=== PATIENT | female | born 1995 | race Caucasian/White ===

== ENCOUNTER → 2018-10-04 11:05 | Outpatient (CLI) | payer MEDICAID, SELFPAY ==
[2016-03-30 23:49] VITALS: BMI 30.2
[2018-10-04 13:31] LABS: Absolute Lymphocyte Count 2.16 X10^3/ul (0.83-4.51); Basophil# 0.01 X10^3/uL; Basophil% 0.1 % (0-1); Eosinophil# 0.07 X10^3/uL; Eosinophils% 0.9 % (0-5); Hematocrit 39.5 % (37-47); Hemoglobin 13.5 g/dl (12.0-15.0); Lymphocyte # 2.16 X10^3/ul (4.0); Lymphocyte % 27.7 % (19-41); Mean Corp Hgb Conc 34.2 g/gl (32-36); Mean Corpuscular Hgb 30.5 pg (27.0-32.0); Mean Corpuscular Volume 89.2 fL (81-99); Mean Platelet Vol. 10.4 fl (6.2-12.0); Monocyte# 0.58 X10^3/uL; Monocyte% 7.4 % (0-10); Neutrophil # 4.96 X10^3/uL (2.7-7.7); Neutrophil % 63.8 % (47-70); Platelet Count 263 K/mm3 (150-450); RBC Distribution Width CV 12.7 % (11.6-14.6); RBC Distribution Width SD 41.2 fl (35.1-43.9); Red Blood Count 4.43 M/mm3 (4.2-5.4); White Blood Count 7.8 K/mm3 (4.4-11.0)
[2018-10-04 13:34] LABS: POSITIVE COUNT NO; POSITIVE DIFFERENTIAL NO; POSITIVE MORPHOLOGY NO
[2018-10-04 13:47] LABS: AST(SGOT) 16 U/L (15-37); Alanine Aminotransfer ALT/SGPT 16 U/L (13-56); Albumin, Serum 3.8 g/dL (3.2-5.0); Alkaline Phosphatase 68 U/L (45-117); Anion Gap 8 (5-15); BUN 9 mg/dL (7-18); BUN/Creat Ratio 14.4 RATIO (10-20); Calcium,Total 8.6 mg/dL (8.5-10.1); Chloride 107 mmol/L (98-107); Creatinine, Serum 0.63 mg/dL (0.55-1.02); EST Glomerular Filtration Rate 127 mL/min (>60); Est Glom Filt Rate - Afr Amer 154 mL/min (>60); Globulin 3.7 g/dL (2.2-4.2); Glucose 85 mg/dL (74-106); Potassium 3.3 mmol/L (3.5-5.1); Protein, Total 7.5 g/dL (6.4-8.2); Sodium Level 135 mmol/L (136-145)
[2018-10-04 14:28] LABS: HIV - WCH Non-Reactive (Nonreactive); Rubella IgG 10.3 IU/mL
[2018-10-05 09:08] LABS: HEPATITIS B SURFACE AG Negative (Negative)
== END ==
PROVIDERS: Family Provider Family Medicine; PCP Family Medicine; Visit Provider Family Medicine
DX: Z34.90 Encounter for supervision of normal pregnancy, unspecified, unspecified trimester (principal)
CPT/HCPCS: 36415; 80053; 85025; 86703; 86762; 86900; 87340

== ENCOUNTER → 2018-10-12 18:14 | Outpatient (CLI) | payer MEDICAID, SELFPAY ==
[2016-03-30 23:49] VITALS: BMI 30.2
[2018-10-12 23:00] LABS: Chlamydia Trachomatis by PCR Negative (Negative); Neisserai gonorrhoeae by PCR Negative (Negative); Probe Check PASS; Sample Adequacy Control PASS; Specimen Processing Control PASS
[2018-10-15 13:15] LABS: HPV Reflexed? NOT INDICATED
--- OUTSIDE RECORDS SUMMARY | 2019-01-14 06:05 | XMS RPT_ITS ---
:1995 Author Organization [place] Care Team Providers Name Role Phone NIKKI PILLAI MD Attending Unavailable KODY MARKS, DR. JENNIFER Douglas Primary Care Unavailable Renetta Gamble MD Attending Unavailable KODY MARKS, DR. JENNIFER Douglas Primary Care Unavailable TREASURE PAREDES DO Attending Unavailable PHYSICIAN, NONE Primary Care Unavailable GRANT LEIGH MD Attending Unavailable PHYSICIAN, NONE Primary Care Unavailable Ansley Fragoso Attending Unavailable John Lund Primary Care Unavailable Ansley Fragoso Referring Unavailable John Lund Attending Unavailable John Lund Primary Care Unavailable Ansley Fragoso Consulting Unavailable Ansley Fragoso Attending Unavailable PROBLEMS PROBLEMS DATE TYPE CONDITION / CODE ATTENDING STATUS SOURCE 11/01/2018 Unknown Z34.81 - Encounter Anslye Fragoso for supervision of Community other normal Hospital , first Repository trimester / Z34.81(ICD-10) 10/13/2018 Unknown R30.0 - Dysuria / Ansley Fragoso Active [place] R30.0(ICD-10) [facility] Repository 10/13/2018 Unknown Z12.4 - Encounter Ansley Fragoso Active [facility] for screening for Community malignant neoplasm Hospital of cervix / Repository Z12.4(ICD-10) 10/13/2018 Unknown Z11.3 - Encounter Ansley Fragoso Active [place] for screening for Community infections with a Hospital predominantly Repository sexual mode of transmission / Z11.3(ICD-10) 10/04/2018 Unknown Z34.90 - Encounter John Lund Active [facility] for supervision of [facility] normal , Hospital unspecified, Repository unspecified trimester / Z34.90(ICD-10) PROCEDURES PROCEDURES No Procedure Records FoundRESULTS RESULTS UA Collected: 11/05/2018 Status: F Source: [facility] 10:52 PM [facility] REPOSITORY TYPE CODE TESTS RESULT OUT OF RANGE REFERENCE UNITS LAB SPCUA(ROXANA NC) UA Specimen Type Clean Catch LAB CLRUA(ROXANA NC) UA Color Yellow LAB APPUA(ROXANA Clear NC) UA Appear Unknown Slightly Cloudy LAB SGUA(LOIN C) UA Spec Grav 1.015 LAB GLUA(LOIN Negative mg/dL C) UA Glucose Negative LAB BILUA(ROXANA Negative NC) UA Bili Negative LAB KETUA(ROXANA Negative mg/dL NC) UA Ketones Negative LAB BLDUA(ROXANA Negative NC) UA Blood Unknown Trace-Intact LAB PHUA(LOIN C) UA pH 7.0 LAB PROUA(ROXANA Negative mg/dL NC) UA Protein Negative LAB UROUA(ROXANA E.U./dL NC) UA Urobilinogen 0.2 LAB NITUA(RXOANA Negative NC) UA Nitrite Unknown Positive LAB LEUUA(ROXANA Negative NC) UA Leuk Est Unknown Trace Performed By: #### UA, UAMICAO #### [place] [address] .URINALYSIS MICROSCOPIC Collected: 11/05/2018 Status: F Source: [facility]) 10:52 PM [facility] REPOSITORY TYPE CODE TESTS RESULT OUT OF RANGE REFERENCE UNITS LAB WBCUA(LOIN None Seen /hpf C) Unknown UA WBC 0-5 LAB RBCUA(LOIN None Seen /hpf C) Unknown UA RBC 0-5 LAB EPIUA(LOIN None Seen /hpf C) Unknown UA Squam Epithelial 5-10 LAB AMOUA(LOIN /hpf C) UA Amorphus 1+ LAB BACUA(LOIN /hpf C) Unknown UA Bacteria 2+ Performed By: #### UA, UAMICAO #### [place] [id number] Observed: 11/05/2018 Status: F Source: [facility] 10:52 PM [facility] REPOSITORY . MICRO - Microbiology PROCEDURE: Urine Culture [*1] SOURCE: Urine, Clean Catch BODY SITE: COLLECTED DATE/TIME: 11/05/2018 22:52 EST RECEIVED DATE/TIME: 11/06/2018 21:38 EST START DATE/TIME: 11/06/2018 21:38 EST FREE TEXT SOURCE: FINAL REPORTS Final Report [] Verified Date/Time/Personnel: 11/08/2018 09:21 EST >100,000 organisms per mL Escherichia coli PRELIMINARY REPORTS Preliminary Report [] Verified Date/Time/Personnel: 11/07/2018 10:19 EST >100,000 organisms per mL Gram Negative Rods Final identification and DIVINE to follow. SUSCEPTIBILITY RESULTS Escherichia coli Antibiotic DIVINE Dilutn DIVINE Interp Ampicillin <=8 Susceptible Cefazolin <=8 Susceptible Ciprofloxacin <=1 Susceptible Gentamicin <=4 Susceptible Levofloxacin <=2 Susceptible Meropenem <=1 Susceptible Nitrofurantoin <=32 Susceptible Piperacillin/ <=16 Susceptible Tazobactam Trimethoprim/ <=2/38 Susceptible Sulfa Performing Locations *1: This test was performed at: [address], [address] [place] [address] Performed By: #### CUR #### [place] [address] URINE DRUG SCREEN Collected: 11/01/2018 Status: F Source: [facility] (VISTA) 2:58 PM [facility] REPOSITORY Order Comment: Comments: UNK IMMUNITY STATUS List of Drugs Taken or Suspected? UNK TYPE CODE TESTS RESULT OUT OF RANGE REFERENCE UNITS LAB L505.0075 TO BE Normal CONFIRMED Result Comment: CONFIRMATORY TESTING FOR ALL POSITIVE URINE DRUG SCREEN RESULTS WILL ONLY BE SENT OUT UPON PHYSICIAN ORDER. VISTA Urine Drug Screen methods provide only preliminary analytical test results. A more specific alternate chemical method must be used in order to obtain a confirmed analytical result. Gas chromatography/mass spectrometery (GC/MS) is the preferred confirmatory method. Clinical consideration and professional judgement should be applied to any drug of abuse test result, particularly when preliminary positive results are used. URINE TCA TESTING MUST BE ORDERED SEPARATELY. USE TEST MNEMONIC: [facility] LAB L505.5005 VISTA UDS PH 6 Normal LAB L505.5015 <1000 ng/mL AMPHETAMINES Normal NEGATIVE LAB L505.5025 < 200 ng/mL BARBITIURATES Normal NEGATIVE LAB L505.5035 < 200 ng/mL BENZODIAZIPINE Normal NEGATIVE LAB L505.5045 < 300 ng/mL COCAINE Normal NEGATIVE LAB L505.5055 < 500 ng/mL ECSTACY Normal NEGATIVE LAB L505.5065 < 300 ng/mL METHADONE Normal NEGATIVE LAB L505.5075 < 300 ng/mL OPIATES Normal NEGATIVE LAB L505.5085 < 25 ng/mL PCP Normal NEGATIVE LAB L505.5095 < 50 ng/mL THC Normal NEGATIVE Performed By: #### L505.5000, L505.6240 #### [facility] [address] [place], [address] NICOTINE URINE DRUG Collected: 11/01/2018 Status: F Source: [facility] SCREEN 2:58 PM [facility] REPOSITORY Order Comment: Comments: UNK IMMUNITY STATUS List of Drugs Taken or Suspected? UNK TYPE CODE TESTS RESULT OUT OF RANGE REFERENCE UNITS LAB L505.6250 TO BE Normal CONFIRMED Result Comment: CONFIRMATORY TESTING FOR ALL POSITIVE URINE DRUG SCREEN RESULTS WILL ONLY BE SENT OUT UPON PHYSICIAN ORDER. The results of Urine Drug Screen methods provide only preliminary analytical test results. A more specific alternate chemical method must be used in order to obtain a confirmed analytical result. Gas chromatography/mass spectrometery (GC/MS) is the preferred confirmatory method. Clinical consideration and professional judgement should be applied to any drug of abuse test result, particularly when preliminary positive results are used. LAB L505.6270 <200 ng/mL High COT DRG Positive SCREEN Result Comment: Cotinine is the first-stage metabolite of Nicotine. Performed By: #### L505.5000, L505.6240 #### [facility] [address] [place], [address] URINALYSIS, ROUTINE Collected: 11/01/2018 Status: F Source: [facility] (DIPSTICK) 2:58 PM [facility] REPOSITORY Order Comment: Comments: UNK IMMUNITY STATUS How was Urine Obtained? Urine, Random TYPE CODE TESTS RESULT OUT OF RANGE REFERENCE UNITS LAB L400.3000 Yellow COLOR Normal Yellow LAB L400.3050 Clear Normal CLARITY Clear LAB L400.3200 Normal mg/dl Normal GLUCOSE, UR Normal LAB L400.3300 Negative mg/dL Normal BILIRUBIN URINE Negative LAB L400.3400 Negative mg/dl Normal KETONE UR Negative LAB L400.3465 1.002-1.030 Normal SP.GR. DIPSTX 1.010 LAB L400.3550 5.0 - 8.0 pH UR Normal 7.0 LAB L400.3600 Negative mg/dl PROT Normal DIPSTX Negative LAB L400.3700 Normal mg/dl Normal UROBILI Normal LAB L400.3750 Negative Normal NITRITE UR Negative LAB L400.3780 Negative /ul Normal OCCULT BLOOD-UR Negative LAB L400.3800 Negative /ul High LEUK 25 ESTERASE Performed By: #### L400.2010 #### [facility] [address] [place], [address] THYROID STIM HORMONE Collected: 11/01/2018 Status: F Source: [facility] (TSH) 2:58 PM [facility] REPOSITORY TYPE CODE TESTS RESULT OUT OF RANGE REFERENCE UNITS LAB L501.9520 0.358-3.74 uIU/mL Normal TSH 0.67 Performed By: #### L501.9520 #### [facility] [address] [place], [address] CBC W/DIFF, AUTOMATED Collected: 11/01/2018 Status: F Source: [place] 2:58 PM [facility] REPOSITORY TYPE CODE TESTS RESULT OUT OF RANGE REFERENCE UNITS LAB L100.1000 4.4-11.0 K/mm3 Normal WBC 7.8 LAB L100.1200 4.2-5.4 M/mm3 Normal RBC 4.20 LAB L100.1300 12.0-15.0 g/dl Normal HGB 12.7 LAB L100.1400 37-47 % Normal HCT 38.1 LAB L100.1500 81-99 fL Normal MCV 90.7 LAB L100.1600 27.0-32.0 pg Normal MCH 30.2 LAB L100.1700 32-36 g/gl Normal MCHC 33.3 LAB L100.1810 11.6-14.6 % Normal RDW CV 13.4 LAB L100.1820 35.1-43.9 fl High RDW SD 44.2 LAB L100.1900 150-450 K/mm3 Normal PLT 271 LAB L100.2000 6.2-12.0 fl Normal MPV 10.3 LAB L100.2100 47-70 % Normal NEUT% 67.9 LAB L100.2200 19-41 % Normal LY% 25.3 LAB L100.2300 0-10 % Normal MONO% 6.0 LAB L100.2400 0-5 % Normal EO% 0.6 LAB L100.2500 0-1 % Normal BASO% 0.1 LAB L100.2550 0.0-0.9 % Normal IM GRAN % 0.100 Result Comment: IG% - Immature Granulocytes (promyelocytes, myelocytes and metamyelocytes) > 1% indicates that a LEFT SHIFT is Present. LAB L100.2620 2.0-7.7 X10 3/uL Normal Absolute Neut 5.3 LAB L100.2720 0.83-4.51 X10 3/ul Normal Absolute Lymph 1.98 Performed By: #### L100.0100 #### [facility] [address] [place], [address] RUBELLA IGG Collected: 11/01/2018 Status: F Source: [place] 2:58 PM [facility] REPOSITORY Order Comment: Comments: UNK IMMUNITY STATUS TYPE CODE TESTS RESULT OUT OF RANGE REFERENCE UNITS LAB L509.4000 IU/mL Normal Rubella IgG 10.1 Result Comment: Antibody results Interpretation of Immune Status < 5 IU/ml Presumed Non-immune 5 - < 10 IU/ml Equivocal > or = 10 IU/ml Presumed Immune Performed By: #### L509.4000, L3890.6005 #### [facility] [address] [place], [address] HIV - [facility] Collected: 11/01/2018 Status: F Source: [place] 2:58 PM [facility] REPOSITORY Order Comment: Comments: UNK IMMUNITY STATUS TYPE CODE TESTS RESULT OUT OF RANGE REFERENCE UNITS LAB L3890.6005 Nonreactive Normal HIV - [facility] Non-Reactive Performed By: #### L509.4000, L3890.6005 #### [facility] [address] [place], [address] T AND S-NO Collected: 11/01/2018 Status: F Source: [facility] CHARGE W/PNP 2:58 PM [facility] REPOSITORY Order Comment: Reason for Type AND Screen/Red Cells: Surgery? N TYPE CODE TESTS RESULT OUT OF RANGE REFERENCE UNITS LAB B10.0800 A Normal BLOOD NEGATIVE TYPE GEL LAB B100.4050 Normal Ab SCREEN NEGATIVE GEL Performed By: #### B100.7550 #### [facility] [address] [place], [address] HEPATITIS B SURFACE Collected: 11/01/2018 Status: F Source: [place] AG 2:58 PM [facility] REPOSITORY Order Comment: Comments: UNK IMMUNITY STATUS TYPE CODE TESTS RESULT OUT OF RANGE REFERENCE UNITS LAB L3100.0400 Negative Normal HB Negative SURF AG Result Comment: Performed at: - [facility] [id number] Global Process Owner: Suresh Russo PhD, Phone: [phone] Performed By: #### L3100.0390, L3100.0625, L3400.0000 #### [facility] (refer to report for specific site) refer to report for address and phone number HEPATITIS C ANTIBODIES Collected: 11/01/2018 Status: F Source: [place] 2:58 PM [facility] REPOSITORY Order Comment: Comments: UNK IMMUNITY STATUS TYPE CODE TESTS RESULT OUT OF RANGE REFERENCE UNITS LAB L3100.0650 0.0-0.9 s/co ratio Normal HEP C AB 0.3 Result Comment: Negative: < 0.8 Indeterminate: 0.8 - 0.9 Positive: > 0.9 The CDC recommends that a positive HCV antibody result be followed up with a HCV Nucleic Acid Amplification test ([id number]). Performed By: #### L3100.0390, L3100.0625, L3400.0000 #### [facility] (refer to report for specific site) refer to report for address and phone number V-ZOSTER IGG Collected: 11/01/2018 Status: F Source: [facility] (IMMUNITY) 2:58 PM [facility] REPOSITORY Order Comment: Comments: UNK IMMUNITY STATUS TYPE CODE TESTS RESULT OUT OF RANGE REFERENCE UNITS LAB L3400.0000 Immune >165 index Normal VZOST IgG [id number] Result Comment: Negative <135 Equivocal 135 - 165 Positive >165 A positive result generally indicates exposure to the pathogen or administration of specific immunoglobulins, but it is not indication of active infection or stage of disease. Performed By: #### L3100.0390, L3100.0625, L3400.0000 #### [facility] (refer to report for specific site) refer to report for address and phone number RPR Collected: 11/01/2018 Status: F Source: [place] 2:58 PM [facility] REPOSITORY TYPE CODE TESTS RESULT OUT OF REFERENCE UNITS RANGE LAB L700.5100 NONREACTIVE Normal RPR NONREACTIVE Performed By: #### L700.5100 #### [facility] [address] [place], [place], [id number] CT/NG WCH BY PCR Collected: 10/12/2018 Status: F Source: [place] 4:15 PM [facility] REPOSITORY TYPE CODE TESTS RESULT OUT OF RANGE REFERENCE UNITS LAB L8200.2100 Negative Normal Chlam Negative Trac PCR LAB L8200.2200 Negative Normal NG by Negative PCR Performed By: #### L8200.2000 #### [facility] [address] [place], [place], [address] Observed: 10/12/2018 Status: F Source: [place] CULTURE, URINE 4:15 PM [facility] REPOSITORY Urine Culture ORGANISM 1: Presumptive E. coli [place] Count >100,000 Presumptive E. coli: REACTION Amoxacillin/Clavulanic Acid $ <=2 S Ampicillin $ 8 S Ampicillin/Sulbactam $ 4 S Cefazolin $ <=4 S Cefepime $ <=1 S Ceftriaxone $ <=1 S Ciprofloxacin $ <=0.25 S ESBL - Ertapenim $$$ <=0.5 S Gentamicin $ <=1 S Imipenem *NF <=0.25 S Levofloxacin $ <=0.12 S Nitrofurantoin $ <=16 S Piperacillin/Tazobactam $$ <=4 S Tobramycin $ <=1 S Trimethoprim/Sulfametho $ <=20 S (NF) indicates non-formulary drug at [facility]. Approval by Infectious Disease Specialist required before non-formulary drugs may be ordered and/or dispensed. Performed By: #### M100.0650 #### [facility] [address] [place], [address] PAP I-G W/RFX HRHPV Collected: 10/12/2018 Status: F Source: [place] 4:15 PM [facility] REPOSITORY Order Comment: CYTOLOGY INFORMATION: - CLINICAL INFORMATION: - DATE LMP/MENOPAUSE: 08/28/18 LMP - COLLECTION VIAL: Thin Prep Vial - ASSEMBLER PRODUCTION LINE SOURCE: CERVICAL/ENDOCERVICAL - COLLECTION TECHNIQUE: BRUSH/SPATULA Specimen Comment: [id number] Specimen Comment: Source.............Cervix;Endocervix Specimen Comment: LMP / Prev Treat...[id number] Specimen Comment: No. of containers..01 ThinPrep Vial TYPE CODE TESTS RESULT OUT OF RANGE REFERENCE UNITS LAB L7400.0800 . Normal DIAGN Comment Result Comment: NEGATIVE FOR INTRAEPITHELIAL LESION AND MALIGNANCY. PREDOMINANCE OF COCCOBACILLI CONSISTENT WITH SHIFT IN VAGINAL LAURA IS PRESENT. LAB L7400.0900 . Normal ADEQ Comment Result Comment: Satisfactory for evaluation. Endocervical and/or squamous metaplastic cells (endocervical component) are present. LAB L7400.1400 . Normal PERFORM Comment Result Comment: Jacqui Sandoval, [employer] (ASCP) LAB L7400.2575 . Normal TEST METHOD Comment Result Comment: This liquid based ThinPrep(R) pap test was screened with the use of an image guided system. LAB L7400.2600 . Normal . COMM LAB L7400.2700 . Normal PAPSMR Comment Result Comment: The Pap smear is a screening test designed to aid in the detection of premalignant and malignant conditions of the uterine cervix. It is not a diagnostic procedure and should not be used as the sole means of detecting cervical cancer. Both false-positive and false-negative reports do occur. LAB L7400.2800 . Normal HPV RFLX Comment Result Comment: The HPV DNA reflex criteria were not met with this specimen result therefore, no HPV testing was performed. Performed at: - [facility] [id number] Global Process Owner: Corina Schwartz MD, Phone: [phone] Performed By: #### L7400.0350 #### [facility] (refer to report for specific site) refer to report for address and phone number CBC W/DIFF, AUTOMATED Collected: 10/04/2018 Status: F Source: [place] 11:11 AM [facility] REPOSITORY TYPE CODE TESTS RESULT OUT OF RANGE REFERENCE UNITS LAB L100.1000 4.4-11.0 K/mm3 Normal WBC 7.8 LAB L100.1200 4.2-5.4 M/mm3 Normal RBC 4.43 LAB L100.1300 12.0-15.0 g/dl Normal HGB 13.5 LAB L100.1400 37-47 % Normal HCT 39.5 LAB L100.1500 81-99 fL Normal MCV 89.2 LAB L100.1600 27.0-32.0 pg Normal MCH 30.5 LAB L100.1700 32-36 g/gl Normal MCHC 34.2 LAB L100.1810 11.6-14.6 % Normal RDW CV 12.7 LAB L100.1820 35.1-43.9 fl Normal RDW SD 41.2 LAB L100.1900 150-450 K/mm3 Normal PLT 263 LAB L100.2000 6.2-12.0 fl Normal MPV 10.4 LAB L100.2100 47-70 % Normal NEUT% 63.8 LAB L100.2200 19-41 % Normal LY% 27.7 LAB L100.2300 0-10 % Normal MONO% 7.4 LAB L100.2400 0-5 % Normal EO% 0.9 LAB L100.2500 0-1 % Normal BASO% 0.1 LAB L100.2550 0.0-0.9 % Normal IM GRAN % 0.100 Result Comment: IG% - Immature Granulocytes (promyelocytes, myelocytes and metamyelocytes) > 1% indicates that a LEFT SHIFT is Present. LAB L100.2620 2.0-7.7 X10 3/uL Normal Absolute Neut 5.0 LAB L100.2720 0.83-4.51 X10 3/ul Normal Absolute Lymph 2.16 Performed By: #### L100.0100 #### [facility] [address] [place], [address] COMPREHENSIVE METABOLIC Collected: 10/04/2018 Status: F Source: [facility] ONTIVEROS 11:11 AM [facility] REPOSITORY TYPE CODE TESTS RESULT OUT OF RANGE REFERENCE UNITS LAB L501.0100 74-106 mg/dL Normal GLU 85 Result Comment: Please note revised GLUCOSE reference range effective 2017. LAB L501.1000 7-18 mg/dL Normal BUN 9 LAB L501.1100 0.55-1.02 mg/dL Normal CREAT,SERUM 0.63 Result Comment: The validity of the calculated GFR AND GFRAA in patients over 70 years has not been determined. Clinical correlation is essential. LAB L501.1110 >60 mL/min Normal EST GFR 127 Result Comment: Non- GFR Calc LAB L501.1115 >60 mL/min Normal EST GFR - AA 154 Result Comment: GFR Calc LAB L501.1300 10-20 RATIO Normal BUN/CRE 14.4 LAB L501.1500 6.4-8.2 g/dL T Normal PROT 7.5 LAB L501.1800 3.2-5.0 g/dL Normal ALB 3.8 LAB L501.1950 2.2-4.2 g/dL Normal GLOB 3.7 LAB L501.2000 0.9-2.4 RATIO Normal A/G 1.0 LAB L501.2200 8.5-10.1 mg/dL CA Normal 8.6 LAB L501.4100 15-37 U/L Normal AST 16 LAB L501.4305 45-117 U/L Normal ALK P 68 LAB L501.4405 13-56 U/L Normal ALT 16 LAB L501.4600 0.20-1.00 mg/dL T Normal BILI 0.30 LAB L501.5300 136-145 mmol/L Low NA 135 LAB L501.5600 3.5-5.1 mmol/L Low K 3.3 LAB L501.5900 98-107 mmol/L CL Normal 107 LAB L501.6100 21.0-32.0 mmol/L Low CO2 20.0 LAB L501.6200 5-15 Normal GAP 8 Performed By: #### L500.4050 #### [facility] [address] [place], [address] RUBELLA IGG Collected: 10/04/2018 Status: F Source: [place] 11:11 AM [facility] REPOSITORY TYPE CODE TESTS RESULT OUT OF RANGE REFERENCE UNITS LAB L509.4000 IU/mL Normal Rubella IgG 10.3 Result Comment: Antibody results Interpretation of Immune Status < 5 IU/ml Presumed Non-immune 5 - < 10 IU/ml Equivocal > or = 10 IU/ml Presumed Immune Performed By: #### L509.4000, L3890.6005 #### [facility] [address] [facility] [place], [place], [id number] HIV - [facility] Collected: 10/04/2018 Status: F Source: [place] 11:11 AM [facility] REPOSITORY TYPE CODE TESTS RESULT OUT OF RANGE REFERENCE UNITS LAB L3890.6005 Nonreactive Normal HIV - [facility] Non-Reactive Performed By: #### L509.4000, L3890.6005 #### [facility] [address] [facility] [place], [place], [id number] ABO RH BLOOD TYPE, Collected: 10/04/2018 Status: F Source: [facility] PATIENT 11:11 AM [facility] REPOSITORY TYPE CODE TESTS RESULT OUT OF RANGE REFERENCE UNITS LAB B10.0800 A Normal BLOOD NEGATIVE TYPE GEL Performed By: #### B10.0010 #### [facility] [address] [place], [place], [id number] HEPATITIS B SURFACE Collected: 10/04/2018 Status: F Source: [place] AG 11:11 AM [facility] REPOSITORY TYPE CODE TESTS RESULT OUT OF RANGE REFERENCE UNITS LAB L3100.0400 Negative Normal HB Negative SURF AG Result Comment: Performed at: [facility] [id number] Global Process Owner: Suresh Russo PhD, Phone: [phone] Performed By: #### L3100.0390 #### [facility] (refer to report for specific site) refer to report for address and phone number UA Collected: 06/04/2018 Status: F Source: [facility] 10:25 PM [facility] REPOSITORY TYPE CODE TESTS RESULT OUT OF RANGE REFERENCE UNITS LAB SPCUA(ROXANA NC) UA Specimen Type Clean Catch LAB CLRUA(ROXANA NC) UA Color Unknown Brown LAB APPUA(ROXANA Clear NC) UA Appear Unknown Cloudy LAB SGUA(LOIN C) UA Spec Unknown Grav >=1.030 LAB GLUA(LOIN Negative mg/dL C) UA Glucose Negative LAB BILUA(ROXANA Negative NC) UA Bili Negative LAB KETUA(ROXANA Negative mg/dL NC) UA Ketones Negative LAB BLDUA(ROXANA Negative NC) UA Blood Unknown Large LAB PHUA(LOIN C) UA pH 6.5 LAB PROUA(ROXANA Negative mg/dL NC) UA Protein Unknown 100 LAB UROUA(ROAXNA E.U./dL NC) UA Urobilinogen 0.2 LAB NITUA(ROXANA Negative NC) UA Nitrite Negative LAB LEUUA(ROXANA Negative NC) UA Leuk Est Negative Performed By: #### UA, UAMICAO, PREGU #### [place] [address] .URINALYSIS MICROSCOPIC Collected: 06/04/2018 Status: F Source: [place] () 10:25 [facility] REPOSITORY TYPE CODE TESTS RESULT OUT OF RANGE REFERENCE UNITS LAB WBCUA(LOIN None Seen /hpf C) UA WBC None Seen LAB RBCUA(LOIN None Seen /hpf C) Unknown UA RBC LOADED LAB EPIUA(LOIN None Seen /hpf C) Unknown UA Squam Epithelial 0-5 LAB AMOUA(LOIN /hpf C) UA Amorphus Trace LAB BACUA(LOIN /hpf C) Unknown UA Bacteria Trace Performed By: #### UA, UAMICAO, PREGU #### [place] [address] PREGU Collected: 06/04/2018 Status: F Source: [facility] 10:25 PM [facility] REPOSITORY TYPE CODE TESTS RESULT OUT OF RANGE REFERENCE UNITS LAB PREGU(LOIN C) Test Negative Urine LAB PRUG1(LOIN C) Unknown test HCG not (u) int detected. Performed By: #### UA, UAMICAO, PREGU #### [address] [address] UA Collected: 02/27/2018 Status: F Source: [facility] 4:28 [facility] REPOSITORY TYPE CODE TESTS RESULT OUT OF RANGE REFERENCE UNITS LAB SPCUA(ROXANA NC) UA Specimen Type Clean Catch LAB CLRUA(ROXANA NC) UA Color YELLOW LAB APPUA(ROXANA NC) UA Appear CLEAR LAB SGUA(LOIN C) UA Spec Grav 1.025 LAB GLUA(LOIN mg/dL C) UA Glucose NEGATIVE LAB BILUA(ROXANA NC) UA Bili NEGATIVE LAB KETUA(ROXANA mg/dL NC) UA Ketones TRACE LAB BLDUA(ROXANA NC) UA Blood LARGE LAB PHUA(LOIN C) UA pH 6.0 LAB PROUA(ROXANA Negative mg/dL NC) UA Protein Unknown 100 LAB UROUA(ROXANA E.U./dL NC) UA Urobilinogen 0.2 LAB NITUA(ROXANA NC) UA Nitrite POSITIVE LAB LEUUA(ROXANA NC) UA Leuk Est SMALL Performed By: #### UA, PREGU, UAMICAO #### [address] [address] PREGU Collected: 02/27/2018 Status: F Source: [facility] 4:28 [facility] REPOSITORY TYPE CODE TESTS RESULT OUT OF RANGE REFERENCE UNITS LAB PREGU(LOIN C) Test Negative Urine LAB PRUG1(LOIN C) Unknown test HCG not (u) int detected. Performed By: #### UA, PREGU, UAMICAO #### [address] [address] .URINALYSIS MICROSCOPIC Collected: 02/27/2018 Status: F Source: [place] [facility]) 4:28 [facility] REPOSITORY TYPE CODE TESTS RESULT OUT OF RANGE REFERENCE UNITS LAB WBCUA(LOIN None Seen /hpf C) Unknown UA WBC 10-15 LAB RBCUA(LOIN None Seen /hpf C) Unknown UA RBC 5-10 LAB EPIUA(LOIN None Seen /hpf C) Unknown UA Squam Epithelial 5-10 LAB BACUA(LOIN /hpf C) Unknown UA Bacteria 2+ Performed By: #### UA, PREGU, UAMICAO #### [address] [address] UA Collected: 12/26/2017 Status: F Source: [facility] 7:42 [facility] REPOSITORY TYPE CODE TESTS RESULT OUT OF RANGE REFERENCE UNITS LAB SPCUA(ROXANA NC) UA Specimen Type Void LAB CLRUA(ROXANA NC) UA Color YELLOW LAB APPUA(ROXANA NC) UA Appear CLEAR LAB SGUA(LOIN C) UA Spec Abnormal Grav 1.010 LAB GLUA(LOIN mg/dL C) UA Glucose NEGATIVE LAB BILUA(ROXANA NC) UA Bili NEGATIVE LAB KETUA(ROXANA mg/dL NC) UA Ketones NEGATIVE LAB BLDUA(ROXANA NC) UA Blood TRACE-LYSED LAB PHUA(LOIN C) UA pH 7.5 LAB PROUA(ROXANA Negative mg/dL NC) UA Protein 30 LAB UROUA(ROXANA E.U./dL NC) UA Urobilinogen 1.0 LAB NITUA(ROXANA NC) UA Nitrite NEGATIVE LAB LEUUA(ROXANA NC) UA Leuk Est SMALL Performed By: #### UA, PREGU, UAMICAO #### [address] [address] PREGU Collected: 12/26/2017 Status: F Source: [facility] 7:42 [facility] REPOSITORY TYPE CODE TESTS RESULT OUT OF RANGE REFERENCE UNITS LAB PREGU(LOIN C) Test Negative Urine LAB PRUG1(LOIN C) Unknown test HCG not (u) int detected. Performed By: #### UA, PREGU, UAMICAO #### [address] [address] .URINALYSIS MICROSCOPIC Collected: 12/26/2017 Status: F Source: [place] ([place]) 7:42 [facility] REPOSITORY TYPE CODE TESTS RESULT OUT OF RANGE REFERENCE UNITS LAB WBCUA(LOIN None Seen /hpf C) UA WBC Abnormal LOADED LAB RBCUA(LOIN None Seen /hpf C) UA RBC None Seen LAB EPIUA(LOIN None Seen /hpf C) UA Squam Abnormal Epithelial 0-5 LAB BACUA(LOIN /hpf C) UA Abnormal Bacteria 1+ Performed By: #### UA, STEPHANIE MCMILLANMICELVA #### [place] [address] [address] ALLERGIES ALLERGIES DATE TYPE / CODE NAME / CODE REACTION SEVERITY SOURCE 03/30/2016 Drug No Known Unknown [facility] Allergy/4160 Allergies/F00 [facility] [address](SNOMED [id number](RXNOR Repository CT) M) ENCOUNTERS ENCOUNTERS ADMIT/DISCHARGE ACCOUNT NUMBER ADMITTING ENCOUNTER LOCATION SOURCE CLASS 11/05/2018/11/05/19 [id number] Emergency BBuilding:ER [place] [facility] Repository 11/01/2018 [id number] [facility] ding:WOBLAB Repository 10/12/2018 [id number] [facility] ding:LABSPEC Repository 10/04/2018 [id number] [facility] ding:MFPLAB Repository 06/04/2018/06/04/20 [id number] Emergency BBuilding:ER [address] Repository 02/27/2018/02/28/20 [id number] Emergency BBuilding:ER [address] Repository 12/26/2017/12/27/19 [id number] Emergency BBuilding:ER [address] Repository PAYERS PAYERS ENCOUNTER GUARANTOR PAYER SUBSCRIBER SOURCE 11/05/2018 FRANCIA L [facility]ICAID [facility]: [facility] [id number] [facility] [id number] [place]ository [place] Number: [address], [address]Kgz: [phone]) [id number] [place] [id number]: [phone] () Date:2018-11-05 [id number] ()Tel: [phone]) Name:XPO LEV [phone] () [place] [address]: 11/01/2018 FRANCIA L Primary FRANCIA [place] [id number] Insurance:[facility] icy Number: [id number] [id number] Repository [address]Xwg: (330) Date:2018-11-01 [phone] () 11/01/2018 Secondary NOT GIVENUNK [place] Insurance:SELF PAY [facility] Number: Effective Repository Date:2018-11-01 10/12/2018 FRANCIA L Primary FRANCIA L [address] Insurance:PARAMOUNT NICHOLASDOB: [facility] [address] [place] ADVANTAGE [facility] [id number] Hospital [address]Qwg: (330) Number: Repository [phone] () [id number] Date:[id number] [address] [place] [id number]: 10/12/2018 Secondary NOT GIVENUNK [place] Insurance:SELF PAY [facility] Number: Effective Repository Date:2018-10-12 10/04/2018 FRANCIA Primary FRANCIA Jerardo [address] Insurance:PARAMOUNT NICHOLASDOB: [facility] [address] [facility] [id number] Hospital [address]Ztv: [phone] Number: Repository [phone] () [id number] Date:2062-51-56EO [address] [place] [address]ZO: 10/04/2018 Secondary NOT GIVENUNK [place] Insurance:SELF PAY [facility] Number: Effective Repository Date:2018-10-04 06/04/2018 FRANCIA L Primary FRANCIA L [facility] Insurance:PARAM[facility] NICHOLASDOB: [facility] [id number] BOX ADVANTAGEPolicy [id number] Repository [address] [place], [place] Number: [address] [id number]: [phone]) [id number] [place] [id number]: [phone] () Date:2018-06-04 - [id number] ()Tel: [phone]) Name:Anish Adkins [phone] () [place], [place] [address]HV: 02/27/2018 FRANCIA L [facility]: [facility]: [facility] [id number] BOX [facility] [id number] Repository [address] [place] Number: [address], [phone]: [phone]) [id number] [place] [address]Gfo: [phone] (HP) Date:2018-02-27 [id number] (HP)Tel: [phone]) Name:[phone] (WP) [place], [place] [address]PX: 12/26/2017 FRANCIA L Primary [facility] Insurance:[facility] [address] [id number] Repository [address] Number: [address] [place] [place] [id number] [place], [place] [address]Haf: ([phone]) Date:2017-12-26 [id number]: (HP) [id number] [phone] Name:[address] (HP)Tel: [phone]) [address], [place] 000[address] (WP) [address]GT:
== END ==
PROVIDERS: Family Provider Family Medicine; PCP Family Medicine; Referring Provider Obstetrics & Gynecology; Visit Provider Obstetrics & Gynecology
DX: Z12.4 Encounter for screening for malignant neoplasm of cervix (principal); Z11.3 Encounter for screening for infections with a predominantly sexual mode of transmission; R30.0 Dysuria
CPT/HCPCS: 87086; 87088; 87186; 87491; 87591; 88175; G0145

== ENCOUNTER → 2018-11-01 14:54 | Outpatient (CLI) | payer MEDICAID, SELFPAY ==
[2016-03-30 23:49] VITALS: BMI 30.2
[2018-11-01 17:39] LABS: Color, Urine Yellow (Yellow); Glucose, Dipstick Normal (Normal); Ketone-Dipstick Negative (Negative); Leukocyte Esterase-Dipstick 25 /ul (Negative); Nitrite-Dipstick Negative (Negative); Occult Blood-Urine Negative /ul (Negative); Protein-Dipstick Negative (Negative); Urine Bilirubin Dipstick Negative (Negative); Urine Clarity Clear (Clear); Urine Urobilinogen Normal (Normal)
[2018-11-01 17:54] LABS: Absolute Lymphocyte Count 1.98 X10^3/ul (0.83-4.51); Absolute Neutrophil Count 5.3 X10^3/uL (2.0-7.7); Basophil# 0.01 X10^3/uL; Basophil% 0.1 % (0-1); Eosinophil# 0.05 X10^3/uL; Eosinophils% 0.6 % (0-5); Hematocrit 38.1 % (37-47); Hemoglobin 12.7 g/dl (12.0-15.0); Lymphocyte # 1.98 X10^3/ul (4.0); Lymphocyte % 25.3 % (19-41); Mean Corp Hgb Conc 33.3 g/gl (32-36); Mean Corpuscular Hgb 30.2 pg (27.0-32.0); Mean Corpuscular Volume 90.7 fL (81-99); Mean Platelet Vol. 10.3 fl (6.2-12.0); Monocyte# 0.47 X10^3/uL; Neutrophil % 67.9 % (47-70); Platelet Count 271 K/mm3 (150-450); RBC Distribution Width CV 13.4 % (11.6-14.6); RBC Distribution Width SD 44.2 fl (35.1-43.9); White Blood Count 7.8 K/mm3 (4.4-11.0)
[2018-11-01 18:14] LABS: Thyroid Stim Hormone (TSH) 0.67 uIU/mL (0.358-3.74)
[2018-11-01 18:19] LABS: POSITIVE COUNT NO; POSITIVE DIFFERENTIAL NO; POSITIVE MORPHOLOGY NO
[2018-11-01 18:35] LABS: Amphetamine Urine VISTA NEGATIVE (<1000 ng/mL); Barbiturate Urine VISTA NEGATIVE (< 200 ng/mL); Benzodiazepine Urine VISTA NEGATIVE (< 200 ng/mL); Cocaine Urine VISTA NEGATIVE (< 300 ng/mL); Ecstacy Urine VISTA NEGATIVE (< 500 ng/mL); Methadone Urine VISTA NEGATIVE (< 300 ng/mL); PCP Urine VISTA NEGATIVE (< 25 ng/mL); THC Urine VISTA NEGATIVE (< 50 ng/mL); Vista UDS pH Range 6
[2018-11-01 18:49] LABS: HIV - WCH Non-Reactive (Nonreactive); Rubella IgG 10.1 IU/mL
[2018-11-01 19:14] LABS: COTININE Drug Screen Positive (<200 ng/mL)
[2018-11-04 14:54] LABS: HEPATITIS B SURFACE AG Negative (Negative); Hep C Antibodies 0.3 s/co ratio (0.0-0.9); V-Zoster IgG (Immunity) 217 index (Immune >165)
[2018-11-05 03:30] LABS: Prenatal RPR NONREACTIVE (NONREACTIVE)
== END ==
PROVIDERS: Visit Provider Obstetrics & Gynecology
DX: Z34.81 Encounter for supervision of other normal pregnancy, first trimester (principal)
CPT/HCPCS: 36415; 80307; 81002; 84443; 85025; 86703; 86762; 86787; 86803; 87340

== ENCOUNTER → 2018-12-07 10:48 | Outpatient (CLI) | payer MEDICAID, SELFPAY ==
[2016-03-30 23:49] VITALS: BMI 30.2
[2018-12-07 14:31] LABS: Mucous, Urine 0 SEEN /hpf (<or=2+); Red Blood Cells-Urine 0 SEEN /hpf (0-5); Squamous Epithelial Cells - UA 0 SEEN /hpf (5-10)
[2018-12-07 15:55] LABS: Color, Urine Yellow (Yellow); Glucose, Dipstick Normal (Normal); Ketone-Dipstick 5 mg/dl (Negative); Leukocyte Esterase-Dipstick 500 /ul (Negative); Nitrite-Dipstick Negative (Negative); Occult Blood-Urine 25 /ul (Negative); Protein-Dipstick 15 mg/dl (Negative); Urine Bilirubin Dipstick Negative (Negative); Urine Clarity Turbid (Clear); Urine Urobilinogen 1 mg/dl (Normal); Urine pH 6.5 (5.0 - 8.0)
[2018-12-07 16:14] LABS: Amorphous Sediment 2+; Bacteria 3+ /hpf (None Seen)
[2018-12-07 16:15] LABS: White Blood Cells 0-5 SEEN /hpf (0-5)
== END ==
PROVIDERS: Family Provider Family Medicine; PCP Family Medicine; Referring Provider Family Medicine; Visit Provider Family Medicine
DX: N39.0 Urinary tract infection, site not specified (principal)
CPT/HCPCS: 81001; 87086; 87088; 87186

== ENCOUNTER → 2019-03-14 15:34 | Outpatient (CLI) | payer MEDICAID, SELFPAY ==
[2019-03-14 17:29] LABS: Hematocrit 31.6 % (37-47); Hemoglobin 10.9 g/dl (12.0-15.0); Mean Corp Hgb Conc 34.5 g/gl (32-36); Mean Corpuscular Hgb 31.1 pg (27.0-32.0); Mean Platelet Vol. 9.9 fl (6.2-12.0); Platelet Count 235 K/mm3 (150-450); RBC Distribution Width CV 13.2 % (11.6-14.6); RBC Distribution Width SD 42.9 fl (35.1-43.9); Red Blood Count 3.51 M/mm3 (4.2-5.4); White Blood Count 15.3 K/mm3 (4.4-11.0)
[2019-03-14 17:31] LABS: Scan Indicated on CBC? Y/N NO
[2019-03-14 17:50] LABS: Glucose Challenge Gest 1H 50g 103 mg/dL (70-140)
== END ==
PROVIDERS: Visit Provider Obstetrics & Gynecology
DX: Z34.83 Encounter for supervision of other normal pregnancy, third trimester (principal)
CPT/HCPCS: 36415; 82950; 85027; 86850

== ENCOUNTER → 2019-05-09 17:07 | Outpatient (CLI) | payer MEDICAID, SELFPAY ==
[2016-03-30 23:49] VITALS: BMI 30.2
== END ==
PROVIDERS: Visit Provider Obstetrics & Gynecology
DX: Z36.85 Encounter for antenatal screening for Streptococcus B (principal)
CPT/HCPCS: 87081

== ENCOUNTER 2019-05-13 15:39 | Outpatient (CLI) | payer MEDICAID, SELFPAY ==
[2019-05-13 16:22] VITALS: BMI 37.5
[2019-05-13 17:09] LABS: Mucous, Urine 0 SEEN /hpf (<or=2+)
[2019-05-13 17:27] LABS: Color, Urine Yellow (Yellow); Glucose, Dipstick Normal (Normal); Ketone-Dipstick Negative (Negative); Leukocyte Esterase-Dipstick 25 /ul (Negative); Nitrite-Dipstick Negative (Negative); Occult Blood-Urine 10 /ul (Negative); Protein-Dipstick 30 mg/dl (Negative); Urine Bilirubin Dipstick Negative (Negative); Urine Clarity Clear (Clear); Urine Urobilinogen Normal (Normal)
[2019-05-13 18:03] LABS: Red Blood Cells-Urine 0-5 SEEN /hpf (0-5); Squamous Epithelial Cells - UA 0-5 SEEN /hpf (5-10); White Blood Cells 5-10 SEEN /hpf (0-5)
[2019-05-13 18:04] LABS: Bacteria RARE /hpf (None Seen)
--- NOTE | 2019-05-15 19:50 | OB.TRI.NOTE ---
- Problem List (1) 36 weeks gestation of Status: Acute History of Present Illness Date of Service: 05/13/19 Was patient seen by the physician?: No Reason For Visit: R/O LABOR Final BRANDON: 06/04/19 Final BRANDON Source: US <20 weeks Gestational age: 37 Weeks and 1 Days History of Present Illness: 24yo G 1 with c/o contractions Allergies No Known Allergies Allergy (Verified 05/13/19 16:23) Laboratory Studies: Laboratory Tests 05/13/19 Range/Units 17:01 Urine Color Yellow (Yellow) Urine Clarity Clear (Clear) Urine pH 7.0 (5.0 - 8.0) Ur Specific [place] 1.010 (1.002-1.030) Urine Protein 30 H (Negative) mg/dl Urine Glucose (UA) Normal (Normal) mg/dl Urine Ketones Negative (Negative) mg/dl Urine Occult Blood 10 H (Negative) /ul Urine Nitrite Negative (Negative) Urine Bilirubin Negative (Negative) mg/dL Urine Urobilinogen Normal (Normal) mg/dl Ur Leukocyte Esterase 25 H (Negative) /ul Urine RBC 0-5 SEEN (0-5) /hpf Urine WBC 5-10 SEEN (0-5) /hpf Ur Squamous Epith Cells 0-5 SEEN (5-10) /hpf Urine Bacteria RARE (None Seen) /hpf Urine Mucus 0 SEEN (<or=2+) /hpf Physical Exam Vitals: vss Cervix Dilation (cm): 1 - per RN Faustina Todd Station: -2 Effacement (%): 50 NST - FHR Rate Baby A Baseline: 115 Variability:: Moderate Accelerations:: 15 x 15 Decelerations:: None NST Reactive:: Yes FHR Category:: Category I Uterine Activity:: 0-1/10 Impression/Plan False labor at <37 wga Cat I FHR d/c home
== END 2019-05-13 18:30 | disposition home or self-care (01) ==
LOC: WPOUT 15:50 → WP 15:50
PROVIDERS: Referring Provider Obstetrics & Gynecology; Visit Provider Obstetrics & Gynecology
DX: O47.1 False labor at or after 37 completed weeks of gestation (principal); Z3A.37 37 weeks gestation of pregnancy
CPT/HCPCS: 59025; 59050; 81001; 87086; 87088; 99218; G0378

== ENCOUNTER 2019-05-26 18:50 | Inpatient (IN) | payer MEDICAID, SELFPAY ==
--- NOTE | 2019-05-26 19:13 | PCM.HPOB.BLA ---
History and Physical Date of Admission: 05/26/19 OB HISTORY AND PHYSICAL EXAMINATION History of this : 24 yo female Ab0 with EDC 06/04/2019 by Ultrasound, presents to Labor and Delivery for induction of labor due to severe oligohydramnios, and SGA at 37 5/7 wk EGA. care remarkable for: A negative, Rubella immune, GBS negative. 1.) Mild anemia 2.) IMMUNE to chickenpox IgG positive at NOB labs 3.) Former heroin none for two years 4.) A NEG 5.) H/O UTI., E coli UTI at initial visit 6.) , Smoker, up to 1 ppd, dec to 10/27 ppd Pertinent Past Medical History: smoker, former drug use Allergies: No Known Drug Allergies Medications: During - Keflex 500 mg capsule; 28 mg-800 mcg tablet; ferrous sulfate 325 mg (65 mg iron) tablet Review of Systems: Non-contributory PHYSICAL EXAMINATION General Appearence: 24 yo female in no acute distress Vital Signs: AF, VSS Heart: RRR without rubs or gallops Lungs: CTA x 2 Breasts: deferred Abdomen: gravid Pelvis: Cervix: Presentation: cephalic Station: Fetus: Size: SGA: EFW 5# 1 oz. today. no fluid on sono. Doppler flow WNL on sono today. Movement: present Heart: present Impression /Plan: Intrauterine . 38 5/7 wk induction for severe oligohydramnios, SGA Admit. Plan cytotec po. to pitocin and AROM planned after cervical ripening. Watch tolerance of labor. Patient seen and re-examined at time of admission. Physician's Signature: Tanner Fragoso MD 05/26/19 1915.
[2019-05-26 19:50] VITALS: BMI 38.4
[2019-05-26] MEDS: Lactated Ringers 1,000 ML 50 ML IV (19:50)
[2019-05-26 20:37] LABS: Absolute Lymphocyte Count 2.31 X10^3/uL (0.83-4.51); Absolute Neutrophil Count 13.8 X10^3/uL (2.0-7.7); Basophil# 0.04 X10^3/uL; Basophil% 0.2 % (0-1); Eosinophil# 0.03 X10^3/uL; Eosinophils% 0.2 % (0-5); Hematocrit 32.6 % (37-47); Hemoglobin 10.9 g/dL (12.0-15.0); Lymphocyte # 2.31 X10^3/ul (4.0); Lymphocyte % 13.4 % (19-41); Mean Corp Hgb Conc 33.4 g/dL (32-36); Mean Corpuscular Hgb 30.8 pg (27.0-32.0); Mean Corpuscular Volume 92.1 fL (81-99); Mean Platelet Vol. 10.1 fl (6.2-12.0); Monocyte# 0.75 X10^3/uL; Monocyte% 4.4 % (0-10); NRBC Flagged by Analyzer 0 % (0-5); Neutrophil # 13.79 X10^3/uL (2.7-7.7); Neutrophil % 79.9 % (47-70); Platelet Count 228 K/mm3 (150-450); RBC Distribution Width CV 13.2 % (11.6-14.6); RBC Distribution Width SD 44.4 fl (35.1-43.9); Red Blood Count 3.54 M/mm3 (4.2-5.4); White Blood Count 17.2 K/mm3 (4.4-11.0)
--- NOTE | 2019-05-26 22:55 | PN_ITS ---
Progress Note 24yo G1 @ 38 5/7wga for scheduled IOL with anhydramnios. FHR 120, moderate variability with intermittent prolonged decelerations. TOCO - 0-2/10 min. Reviewed EFM findings with patient. Discussed delivery risks and risks inherent to mode of delivery. Plan for VISION REHABILITATION THERAPIST to assess tolerance to labor. If positive VISION REHABILITATION THERAPIST, proceed with section. If negative, may proceed with induction. Patient and family given opportunity to ask questions and questions answered to their satisfaction.
[2019-05-27] VITALS (25 sets, daily range): BP systolic 98–139; BP diastolic 52–81; PULSE 74–99; RESP 16–18; TEMP 36.1–36.8; O2SAT 94–100
--- NOTE | 2019-05-27 00:45 | PN_ITS ---
Progress Note FHR tracing observed for approximately 3 hours with increasing frequency of decelerations - 2, then 3 per hour. Staff unable to initiate STENOTYPE OPERATOR due to continued decelerations. Will plan for section.
[2019-05-27] MEDS: CHLORHEXIDINE GLUC 2% CLOTH 1 EACH TOWELETTE TOPICAL (01:22)
[2019-05-27] MEDS: Lactated Ringers 1,000 ML 50 ML IV (01:43)
--- NOTE | 2019-05-27 01:50 | PCM.PN.BLA ---
Progress Note Discussed with patient plan of care. Recommend section given increased risk for emergent section and intolerance to few maternal contractions. Pt reports no contractions in the last hour however and NST reactive, Cat I in absence of contractions. r/b/i reviewed. Patient in agreement with plan and prefers to proceed.
[2019-05-27] MEDS: Sodium Citrate/Citric Acid 30 ML UDC PO (02:06)
[2019-05-27] MEDS: Cefazolin 2 GM in 0.9% Normal Saline 100 ML IV (02:11)
[2019-05-27] MEDS: Oxytocin 30 units/NS 500 ml 30 UNITS/500 ML IV.SOLN 167 UNITS IV (02:44)
--- NOTE | 2019-05-27 03:24 | OP.PCM_ITS ---
Problem List (1) Anhydramnios Status: Acute Qualifiers: Fetus number: single or unspecified fetus Trimester: third trimester Qualified Code(s): O41.03X0 - Oligohydramnios, third trimester, not applicable or unspecified (2) intolerance to labor, delivered, current hospitalization Status: Acute Report of Operation Date of Procedure: 05/27/19 Description of Surgical Findings:: MALE - 2280g pinsetter mechanic automatic: Rose Bonilla Type of Anesthesia:: Epidural Anesthesiologist: Maryana Wilks Delivery Classification: Scheduled Final BRANDON: 06/04/19 Gestational age: 38 Weeks and 6 Days Indications: 24yo G1 @ 38 6/7wga with anhydramnios presented for induction of labor. Fetus had 2-3 prolonged decelerations an hour over observation period coinciding with irregular contractions concerning for intolerance of labor. Indications for : - - intolerance to labor Description of Procedure: The patient was taken to the operating room and spinal analgesia was administered. She is placed in a dorsal supine position with left lateral tilt. The perineum and abdomen were prepped and draped in sterile fashion. And the spinal was found to be adequate. A Pfannenstiel incision was made using a scalpel and brought down to incise the subcutaneous tissue and rectus fascia at the midline. Subcutaneous tissue was bluntly dissected off the fascia laterally. The fascial incision was dissected laterally and cephalad using curved Randhawa scissors. The superior leaflet of the rectus fascia was grasped using Kush clamps and bluntly dissected and sharply dissected from the underlying rectus muscle. In a similar fashion the inferior rectus fascia was dissected from the underlying muscle. The rectus muscles were bluntly at the midline. The peritoneum was identified and entered [sharply]. The bladder blade was placed into the abdomen and the vesicouterine peritoneal fold identified. The fold was incised and a bladder flap created. Bladder blade was then repositioned to the abdomen. A low transverse hysterotomy was made using the [Metzenbaum scissors] to level of the membranes. The hysterotomy was extended bluntly cephalad and caudad. The membranes were then ruptured revealing clear fluid. The head was elevated and brought to the level of the hysterotomy and the delivered revealing vigorous [male] . The cord was doubly clamped and cut after 30 seconds. The was passed to awaiting [nursery personnel]. The placenta was [expressed] from the uterus and appeared intact on inspection. The uterus was cleared of debris. The hysterotomy was then repaired using 0 Vicryl running lock suture. A second imbr icating layer was also placed for additional hemostasis. The bladder blade was removed. The anterior cul-de-sac was cleared of debris. The peritoneum and rectus muscles were reapproximated using 2-0 Vicryl running suture. The rectus fascia was closed using 0 Vicryl running suture. The subcutaneous tissue was reapproximated using 2-0 Vicryl. The skin was closed using 4-0 Monocryl subcuticularly by the BIODIESEL OPERATIONS MANAGER under my supervision. A Mepilex occlusive dressing was placed over the incision. The fundus was firm. The patient was then transferred to the recovery room without complication. Sponge, instrument, and needle counts were correct ?2. Amniotic Membrane Rupture Type: Artificial Amniotic Fluid Description: Clear Placenta Disposition: Sent to Pathology Drain: Arias to straight drain Fluids Replaced: 1000 ml Cord Entanglement: None Nuchal Cord Compression: Without compression Cord Vessel Description: 3 Vessels Esitmated Blood Loss (ml): 500 Infant Gender: Male (1 minute): 8 (5 minute): 9 Delayed cord clamping: Yes Pre-op Antibiotic Given: Ancef 2 grams IV x1 Pt instructed on risks of surgery: Bleeding, Anesthesia Risks, Infection, Injury to surrounding structure(s) including bowel and bladder Complications: None - Admit VTE Documentation VTE Present on Admission: No VTE Mechan Device Prophylaxis: SCD's
--- NOTE | 2019-05-27 03:41 | PLAC_PTH ---
PATIENT: FRANCIA COTTER LOC: WP U#:[id number] AGE/SX: 24/ ROOM: WP018 RE05/26/[address]: Dr. Taylor Stinson MD : 1995 BED: 1 DIS: 05/30/2019 SPEC #: [id number] RECD: 05/27/19 03:54 STATUS: ROLAND DIVYA #: [id number] ROCIO: 05/27/19 03:[address]: Taylor Mills DEPT: SURGICAL PATHOLOGY RECD BY: Best Camacho Tissues: Placenta, NOS Procedures: Surgery Specimen Level V HEADER OPERATION: Primary section PRE-OP DIAGNOSIS: Anhydramnios, 38 5/7wga TISSUE SUBMITTED: Placenta MICROSCOPIC DIAGNOSIS Placenta: Placental disc - third trimester placenta (281 gm). Focal area of peripheral infarction (1 cm in greatest dimension). Membranes - no pathologic diagnosis. Umbilical cord - three blood vessels and no pathologic diagnosis. SJ:armando 05/31/19 MICROSCOPIC DESCRIPTION Slides are reviewed. GROSS DESCRIPTION SPECIMEN: PLACENTA / CLINICAL INFORMATION: A. Weight: 2.28 kg B. Gestational Age: 38 weeks C. Sex: Male PLACENTAL WEIGHT (POST FIXATION): 281 gm PLACENTAL DIMENSIONS: 16 x 15 x 2.5 cm PLACENTAL SHAPE: Usual ovoid PLACENTAL WEIGHT FOR GESTATIONAL AGE: <10th percentile MEMBRANES - Present A. Insertion: Marginal B. Site of rupture from edge: 10 cm from edge of placental disc C. Color of membrane: Cummings-luke D. Abnormalities: None UMBILICAL CORD - Present A. Color: Cummings-luek B. Insertion: Near central C. Length: 28 cm D. Diameter: 1 cm E. Number of vessels: Three F. Abnormalities: None PLACENTAL DISC - Present A. Color of surface: Cummings-luke B. surface abnormalities: None C. Maternal cotyledons: Intact with minimal tears D. Attached retro placental clot: No clot E. Cut surface: Dark red and spongy F. Lesions: Serial sections reveal a firm, cummings-white lesion at periphery of placental disc measuring 1 x 0.8 cm. G. Separate clot: Absent SECTIONS SUBMITTED: 1. Umbilical cord ( end inked) 2. Membrane roll 3. Placental disc, and maternal surfaces, lesion 4. Placental disc, and maternal surfaces 5. Placental disc, and maternal surfaces AM:armando 05/27/19 More sections of umbilical cord is submitted in cassette 6. / SJ:armando 05/30/19 TC:5 CPT: 21720
[2019-05-27 04:02] LABS: Pathology Specimen OB SEE PATHOLOGY REPORT
[2019-05-27] MEDS: Methylergonovine 0.2 MG/ML Ampul IM (04:32)
--- NOTE | 2019-05-27 08:33 | PCM.PN.OB ---
Patient Problems: Active and Suspected Problems Anhydramnios (Acute) intolerance to labor, delivered, current hospitalization (Acute) Subjective: POD#0 Primary C/S for intolerance of labor Nursing. Doing well. Pain control adequate. No concerns voiced at present. Objective: Arias in place, clear, pale yellow urine noted. - Physical Exam General: Alert, Oriented x3, Cooperative, No apparent distress HEENT: Atraumatic, EOMI Neck: Supple Abdomen: Soft - Fundus firm NT inferior to umbilicus Neurological: Cranial nerves II-XII grossly intact Psych/Mental Status: Normal Affect Vital Signs Temp Pulse Resp BP Pulse Ox 98.2 F 93 16 113/57 L 99 05/27/19 08:15 05/27/19 08:15 05/27/19 08:15 05/27/19 08:15 05/27/19 08:15 Oxygen Delivery Method Room Air Weight: 92.17 kg Body Mass Index (BMI) 38.4 Intake and Output for Last 24 Hours 05/25/19 05/26/19 05/27/19 23:59 23:59 23:59 Intake Total 2400 / 2400 Output Total 900 / 900 Balance 1500 / 1500 Laboratory Tests Past 24 Hrs 05/26/19 05/26/19 19:50 19:50 WBC 17.2 H RBC 3.54 L Hgb 10.9 L Hct 32.6 L MCV 92.1 MCH 30.8 MCHC 33.4 RDW Std Deviation 44.4 H RDW Coeff of Stephan 13.2 Plt Count 228 MPV 10.1 Immature Gran % (Auto) 1.900 H Neut % (Auto) 79.9 H Lymph % (Auto) 13.4 L Reynolds % (Auto) 4.4 Eos % (Auto) 0.2 Baso % (Auto) 0.2 Absolute Neuts (auto) 13.8 H Absolute Lymphs (auto) 2.31 Nucleated RBC % 0 Blood Type A NEGATIVE Antibody Screen NEGATIVE Medical Necessity - Tobacco Use Smoking Status: Light Smoker (<10/day) Assessment/Plan All Active Problems 36 weeks gestation of (Acute) Anhydramnios (Acute) intolerance to labor, delivered, current hospitalization (Acute) POD#0 Primary C/S 38 6/7 wk EGA intolerance of labor Stable postop. continue routine care. inc diet and activity as tolerated. continue Toradol
[2019-05-27] MEDS: Ondansetron 4 MG/2 ML Vial IV (09:11)
[2019-05-27] MEDS: Ketorolac 30 MG/ML Syringe IV ×3 (09:11→20:40)
[2019-05-27] MEDS: Prenatal Vits Tablet 1 TABLET PO (13:09)
[2019-05-27] MEDS: Lactated Ringers 1,000 ML 100 ML IV ×2 (13:09→15:33)
[2019-05-27] MEDS: 0.9% Saline Lock 10 ML Syringe IV (20:41)
--- NOTE | 2019-05-27 22:53 | PCM.DCCSEC ---
Discharge Diet: No Restrictions Discharge Activity: May not drive while taking narcotic pain medications., May Shower, May Take a Tub Bath Return to work on:: 07/11/19 May resume sexual activity in: 4-6 weeks Lifting Restrictions: 20 pounds Additional Activity Instructions:: Nothing in the vagina for 4-6 weeks. You may return to work/school in 6 weeks. Change Dressing in (Days):: 7 Remove Dressing in (days):: 7 Cleanse incision/area with: Soap & Water, Keep Dressing Clean & Dry Additional Instructions: If you experience any of the following, contact your healthcare provider. Bleeding that soaks a pad every hour for 2 hours Fever 100.4 or higher Unrelieved incision or abdominal pain Swelling, redness, discharge or bleeding from your incision Problems urinating (including inability to urinate or burning while urinating). Visual changes Severe headache Flu-like symptoms Pain or redness in one of both of your breasts Pain, warmth, tenderness or swelling in your legs, especially the calf area Frequent nausea and vomiting Symptoms of depression or anxiety If you experience any of the following, call 911 or go to the nearest Emergency Room. Chest pain Problems breathing Seizure activity Partial or complete paralysis of a body part, slurred speech, weakness or drooping of the face, or a sudden inability to walk or hold your balance Allergies/Adverse Reactions: Allergies No Known Allergies Allergy (Verified 05/13/19 16:23) Medications to take at Discharge Vit No.130/Iron/Folic [ Tablet] 1 ea PO DAILY 05/13/19 Docusate Sodium [Colace] 100 mg PO BID #30 cap 05/27/19 Naproxen [Naprosyn] 250 - 500 mg PO TID PRN PRN #30 tab 05/27/19 Oxycodone [Oxyir] 5 mg PO Q6H PRN PRN 7 Days #15 tablet 05/27/19 Polyethylene Glycol 3350 [Miralax] 17 gm PO DAILY PRN #14 packet 05/27/19 The following prescriptions were given: Docusate Sodium [Colace] 100 mg PO BID #30 cap Transmission Status: Pending to [facility] Polyethylene Glycol 3350 [Miralax] 17 gm PO DAILY PRN #14 packet PRN Reason: Constipation Transmission Status: Pending to [facility] Naproxen [Naprosyn] 250 - 500 mg PO TID PRN PRN #30 tab PRN Reason: Mild-Mod Pain (1-03/04) Transmission Status: Pending to [facility]. Oxycodone [Oxyir] 5 mg PO Q6H PRN PRN 7 Days #15 tablet PRN Reason: Mod-Severe Pain (-08/04) Transmission Status: Received by [facility]. Follow-Up: Call to make an appointment with your doctor for an incision check in 1-2 weeks. You will also need a 6 week post- follow up appointment. Test results from this visit will be discussed in further detail at your follow-up appointment, if applicable. Please Follow Up With: Ansley Fragoso MD - [phone] When: Call to make an appointment for an incision check in 2 weeks. Proposed Discharge Date: 05/30/19
[2019-05-28 01:00] VITALS: PULSE 68; RESP 18; O2SAT 100
[2019-05-28] MEDS: Ibuprofen 600 MG Tablet PO ×3 (03:45→17:41)
[2019-05-28 03:50] VITALS: BP 115/66; PULSE 75; RESP 16; TEMP 35.9; O2SAT 100
[2019-05-28 04:21] LABS: Hematocrit 28.5 % (37-47); Hemoglobin 9.4 g/dL (12.0-15.0); Mean Corpuscular Hgb 30.8 pg (27.0-32.0); Mean Corpuscular Volume 93.4 fL (81-99); Mean Platelet Vol. 9.6 fl (6.2-12.0); Platelet Count 178 K/mm3 (150-450); RBC Distribution Width CV 13.6 % (11.6-14.6); RBC Distribution Width SD 46.2 fl (35.1-43.9); Red Blood Count 3.05 M/mm3 (4.2-5.4); White Blood Count 12.6 K/mm3 (4.4-11.0)
--- NOTE | 2019-05-28 08:01 | PCM.PN.OB ---
Patient Problems: Active and Suspected Problems Anhydramnios (Acute) intolerance to labor, delivered, current hospitalization (Acute) Subjective: POD#1 Primary C/S for intolerance of labor. States tired. Got 3 hr sleep last night. Has been going out to smoke get fresh air Smokers cough noted. States nonproductive. Hurts with coughing. Breast feeding. - Physical Exam General: Alert, Oriented x3, Cooperative, No apparent distress HEENT: Atraumatic, EOMI Neck: Supple Abdomen: Soft - fundus firm and mininally tender c/w postop status, 2 cm inferior to umbilicus Skin: Incision - Dressing CDI. mepilex in place. Neurological: Cranial nerves II-XII grossly intact Psych/Mental Status: Normal Affect Vital Signs Temp Pulse Resp BP Pulse Ox 96.6 F L 75 16 115/66 100 05/28/19 03:50 05/28/19 03:50 05/28/19 03:50 05/28/19 03:50 05/28/19 03:50 Oxygen Delivery Method Room Air Weight: 92.17 kg Body Mass Index (BMI) 38.4 Intake and Output for Last 24 Hours 05/26/19 05/27/19 05/28/19 23:59 23:59 23:59 Intake Total 2400 / 2400 Output Total 1999 / 1999 300 / 300 Balance 400 / 400 -300 / -300 Laboratory Tests Past 24 Hrs 05/28/19 04:00 WBC 12.6 H RBC 3.05 L Hgb 9.4 L Hct 28.5 L MCV 93.4 MCH 30.8 MCHC 33.0 RDW Std Deviation 46.2 H RDW Coeff of Stephan 13.6 Plt Count 178 MPV 9.6 Medical Necessity - Tobacco Use Smoking Status: Light Smoker (<10/day) Assessment/Plan All Active Problems 36 weeks gestation of (Acute) Anhydramnios (Acute) intolerance to labor, delivered, current hospitalization (Acute) POD#1 Primary C/S 38 6/7 wk EGA intolerance of labor Stable postop. continue routine care. continue Toradol today. Encouraged to rest prn. Baby to nursery prn to allow this. Ambien prn at night.
[2019-05-28] MEDS: Senna/Docusate Sodium 1 Tablet PO (10:43)
[2019-05-28] MEDS: Ferrous Sulfate 325 MG Tablet PO (14:43)
[2019-05-28] MEDS: Prenatal Vits Tablet 1 TABLET PO (14:43)
[2019-05-28 15:00] VITALS: BP 118/56; PULSE 89; RESP 16; TEMP 36.8
[2019-05-28 20:08] VITALS: BP 125/57; PULSE 104; RESP 18; TEMP 36.8
[2019-05-28] MEDS: Acetaminophen 500 MG Tablet 1000 MG PO (20:49)
[2019-05-29] MEDS: oxyCODONE 5 MG Tablet PO ×3 (02:02→14:20)
[2019-05-29 02:05] VITALS: BP 111/54; PULSE 86; RESP 18; TEMP 36.4
--- NOTE | 2019-05-29 07:36 | PCM.PN.OB ---
Patient Problems: Active and Suspected Problems Anhydramnios (Acute) intolerance to labor, delivered, current hospitalization (Acute) Subjective: POD#2 Primary C/S at 385/7 wk intolerance of labor. Anhydramnios and SGA Doing OK. Pain control adequate. No concerns voiced - Physical Exam General: Alert, Oriented x3, Cooperative, No apparent distress HEENT: Atraumatic, EOMI Neck: Supple Abdomen: Soft - Fundus firm , minimally tender, inferior to umbilicus Skin: Incision - CDI. Mepilex remains in place. Psych/Mental Status: Normal Affect, Appropriate Vital Signs Temp Pulse Resp BP Pulse Ox 97.6 F L 86 18 111/54 L 100 05/29/19 02:05 05/29/19 02:05 05/29/19 02:05 05/29/19 02:05 05/28/19 03:50 Oxygen Delivery Method Room Air Weight: 92.17 kg Body Mass Index (BMI) 38.4 Intake and Output for Last 24 Hours 05/27/19 05/28/19 05/29/19 23:59 23:59 23:59 Intake Total 2400 / 2400 Output Total 1999 / 1999 300 / 300 Balance 400 / 400 -300 / -300 Medical Necessity - Tobacco Use Smoking Status: Light Smoker (<10/day) Assessment/Plan All Active Problems 36 weeks gestation of (Acute) Anhydramnios (Acute) intolerance to labor, delivered, current hospitalization (Acute) POD#2 Primary C/S 38 6/7 wk EGA intolerance of labor Stable postop. continue routine care.
[2019-05-29 08:00] VITALS: BP 102/67; PULSE 90; RESP 16; TEMP 37; O2SAT 96
[2019-05-29] MEDS: Prenatal Vits Tablet 1 TABLET PO (12:04)
[2019-05-29] MEDS: Ferrous Sulfate 325 MG Tablet PO ×2 (12:05→20:19)
[2019-05-29 13:40] VITALS: BP 116/57; PULSE 110; RESP 16; TEMP 36.9; O2SAT 96
[2019-05-29 20:00] VITALS: BP 104/67; PULSE 107; RESP 20; TEMP 36.9
[2019-05-29] MEDS: Ibuprofen 600 MG Tablet PO (20:15)
[2019-05-29] MEDS: Acetaminophen 500 MG Tablet 1000 MG PO (21:54)
[2019-05-30 02:00] VITALS: BP 102/55; PULSE 96; RESP 18; TEMP 36.6
[2019-05-30] MEDS: Ibuprofen 600 MG Tablet PO (02:18)
[2019-05-30] MEDS: Acetaminophen 500 MG Tablet 1000 MG PO (06:28)
--- NOTE | 2019-05-30 08:15 | PCM.PN.OB ---
Patient Problems: Active and Suspected Problems Anhydramnios (Acute) intolerance to labor, delivered, current hospitalization (Acute) Subjective: POD#3 Primary C section for intolerance of labor. Anhydramnios and SGA Doing well. Feels ready to go home today. Milk in and nursing, pumping also and states already got two bottles by pumping. - Physical Exam General: Alert, Oriented x3, Cooperative, No apparent distress HEENT: Atraumatic, EOMI Neck: Supple Abdomen: Soft - Fundus firm and NT Inferior to umbilicus Skin: Incision - Mepilex CDI. Psych/Mental Status: Normal Affect Vital Signs Temp Pulse Resp BP Pulse Ox 97.8 F 96 18 102/55 L 96 05/30/19 02:00 05/30/19 02:00 05/30/19 02:00 05/30/19 02:00 05/29/19 13:40 Oxygen Delivery Method Room Air Weight: 92.17 kg Body Mass Index (BMI) 38.4 Intake and Output for Last 24 Hours 05/28/19 05/29/19 05/30/19 23:59 23:59 23:59 Output Total 300 / 300 Balance -300 / -300 Medical Necessity - Tobacco Use Smoking Status: Light Smoker (<10/day) Assessment/Plan All Active Problems 36 weeks gestation of (Acute) Anhydramnios (Acute) intolerance to labor, delivered, current hospitalization (Acute) POD#3 Primary C/S 38 6/7 wk EGA intolerance of labor Stable postop. Discharge home today. RTO in 1-2 wks for postop check.
[2019-05-30 09:00] VITALS: BP 119/68; PULSE 97; RESP 18; TEMP 36.6; O2SAT 97
[2019-05-30 11:56] VITALS: BP 119/68; PULSE 97; RESP 18; TEMP 36.6; O2SAT 97
--- NOTE | 2019-05-31 07:29 | DS.PCM_ITS ---
Discharge Date and Diagnosis Date of Admission: 05/26/19 - 37 5/7 wk induction Anhydramnios and SGA Smoker Date of Discharge: 05/30/19 - S/P primary C/S for intolerance of labor. Hospital Course and Treatment Operations: - - Primary C section for intolerance of labor. Summary of Care Provided: The patient is a 24 year old female at 37 5/7 wk EGA presents for induction of labor for SGA and anhydramnios. EFW 5# 1 oz. Admitted. Unable to start Pitocin or VINYL DIPPER due to recurrent decelerations. Taken for primary C/S Delivery uncomplicated. 5# male. Ap 8/9 Normal pelvic anatomy Preoperative Hgb 10.9 g/dl Postop Hgb 9.4 g/dl (acute blood loss superimposed on iron deficiency anemia) Postoperative course uneventful and sent home on POD#3. AVSS benign exam with incision CDI. - Physical Exam Vital Signs Temp Pulse Resp BP Pulse Ox 97.8 F 97 18 119/68 97 05/30/19 11:56 05/30/19 11:56 05/30/19 11:56 05/30/19 11:56 05/30/19 11:56 Oxygen Delivery Method Room Air Weight: 92.17 kg Body Mass Index (BMI) 38.4 Discharge Diet: No Restrictions Discharge Activity: May not drive while taking narcotic pain medications., May Shower, May Take a Tub Bath Return to work on:: 07/11/19 May resume sexual activity in: 4-6 weeks Additional Activity Instructions:: Nothing in the vagina for 4-6 weeks. You may return to work/school in 6 weeks. Change Dressing in (Days):: 7 Remove Dressing in (days):: 7 Cleanse incision/area with: Soap & Water, Keep Dressing Clean & Dry Home Medications: Medications to take at Discharge Vit No.130/Iron/Folic [ Tablet] 1 ea PO DAILY 05/13/19 Docusate Sodium [Colace] 100 mg PO BID #30 cap 05/27/19 Naproxen [Naprosyn] 250 - 500 mg PO TID PRN PRN #30 tab 05/27/19 Oxycodone [Oxyir] 5 mg PO Q6H PRN PRN 7 Days #15 tab 05/27/19 Polyethylene Glycol 3350 [Miralax] 17 gm PO DAILY PRN #14 packet 05/27/19 Ferrous Sulfate 325 mg PO DAILY@0800 #30 tab 05/28/19 Following Prescrptions Were Given to Patient: Docusate Sodium [Colace] 100 mg PO BID #30 cap Transmission Status: Received by [address] Ferrous Sulfate 325 mg PO DAILY@0800 #30 tab Transmission Status: Received by [address] Polyethylene Glycol 3350 [Miralax] 17 gm PO DAILY PRN #14 packet PRN Reason: Constipation Transmission Status: Received by [address] Naproxen [Naprosyn] 250 - 500 mg PO TID PRN PRN #30 tab PRN Reason: Mild-Mod Pain (1-510) Transmission Status: Received by [address] Oxycodone [Oxyir] 5 mg PO Q6H PRN PRN 7 Days #15 tab PRN Reason: Mod-Severe Pain (4-10) Transmission Status: Received by [address] Please Follow Up With: Ansley Fragoso MD When: Call to make an appointment for an incision check in 2 weeks. Please Follow Up With: John Lund MD When: 1-2 days Medical Necessity - Tobacco Use Smoking Status: Light Smoker (<10/day) Meaningful Use Info Meaningful Use Diagnoses (Choose all that apply): None applicable
== END 2019-05-30 13:00 | disposition home or self-care (01) | DRG 540 ==
PROVIDERS: Admitting Provider Obstetrics & Gynecology; Referring Provider Obstetrics & Gynecology; Visit Provider Obstetrics & Gynecology
DX: O41.03X0 Oligohydramnios, third trimester, not applicable or unspecified (principal); O76 Abnormality in fetal heart rate and rhythm complicating labor and delivery; O99.02 Anemia complicating childbirth; D50.9 Iron deficiency anemia, unspecified; O90.81 Anemia of the puerperium; D62 Acute posthemorrhagic anemia; O36.5930 Maternal care for other known or suspected poor fetal growth, third trimester, not applicable or unspecified; O99.334 Smoking (tobacco) complicating childbirth; F17.200 Nicotine dependence, unspecified, uncomplicated; Z79.899 Other long term (current) drug therapy; Z3A.38 38 weeks gestation of pregnancy; Z37.0 Single live birth
CPT/HCPCS: 59025; 59050; 85025; 85027; 86850; 86900; 88307; 99218; J7120; A4216; G0378; J2405

== ENCOUNTER → 2020-05-18 11:40 | Outpatient (CLI) | payer MEDICAID, SELFPAY ==
[2020-05-18 15:26] LABS: Absolute Lymphocyte Count 1.99 X10^3/uL (0.83-4.51); Absolute Neutrophil Count 4.5 X10^3/uL (2.0-7.7); Basophil# 0.02 X10^3/uL; Basophil% 0.3 % (0-1); Eosinophil# 0.08 X10^3/uL; Eosinophils% 1.1 % (0-5); Hemoglobin 13.2 g/dL (12.0-15.0); Lymphocyte # 1.99 X10^3/ul (4.0); Lymphocyte % 28.4 % (19-41); Mean Corp Hgb Conc 32.2 g/dL (32-36); Mean Corpuscular Hgb 29.5 pg (27.0-32.0); Mean Corpuscular Volume 91.5 fL (81-99); Mean Platelet Vol. 10.4 fl (6.2-12.0); Monocyte# 0.36 X10^3/uL; Monocyte% 5.1 % (0-10); NRBC Flagged by Analyzer 0 % (0-5); Neutrophil # 4.53 X10^3/uL (2.7-7.7); Neutrophil % 64.7 % (47-70); Platelet Count 335 K/mm3 (150-450); RBC Distribution Width CV 13.2 % (11.6-14.6); RBC Distribution Width SD 44.8 fl (35.1-43.9); Red Blood Count 4.48 M/mm3 (4.2-5.4)
[2020-05-18 15:56] LABS: Anion Gap 4 (5-15); BUN 13 mg/dL (7-18); BUN/Creat Ratio 16.4 RATIO (10-20); Calcium,Total 8.8 mg/dL (8.5-10.1); Chloride 110 mmol/L (98-107); EST Glomerular Filtration Rate 95 mL/min (>60); Est Glom Filt Rate - Afr Amer 115 mL/min (>60); Glucose 85 mg/dL (74-106); Sodium Level 138 mmol/L (136-145)
== END ==
PROVIDERS: PCP Family Medicine; Referring Provider Family Medicine; Visit Provider Family Medicine
DX: R20.2 Paresthesia of skin (principal)
CPT/HCPCS: 36415; 80048; 84443; 85025

== ENCOUNTER → 2020-07-17 | Outpatient (CLI) | payer MEDICAID, SELFPAY ==
[2020-07-19 03:06] LABS: Chlamydia By Nucleic Acid AMP Negative (Negative)
[2020-07-19 06:51] LABS: Gonococcus By Nucleic Acid AMP Negative (Negative)
== END | disposition home or self-care (01) ==
LOC: LABSPEC 11:13
PROVIDERS: PCP Family Medicine; Visit Provider Student in an Organized Health Care Education/Training Program
DX: Z11.3 Encounter for screening for infections with a predominantly sexual mode of transmission (principal); Z32.01 Encounter for pregnancy test, result positive
CPT/HCPCS: 87491; 87591

== ENCOUNTER → 2020-07-31 | Outpatient (CLI) | payer MEDICAID, SELFPAY ==
[2020-07-31 13:35] LABS: Color, Urine Yellow (Yellow); Glucose, Dipstick Normal (Normal); Ketone-Dipstick 50 mg/dl (Negative); Leukocyte Esterase-Dipstick 25 /ul (Negative); Nitrite-Dipstick Negative (Negative); Occult Blood-Urine Negative /ul (Negative); Protein-Dipstick 30 mg/dl (Negative); Specific Gravity, Urine 1.015 (1.002-1.030); Urine Bilirubin Dipstick Negative (Negative); Urine Clarity Sl. Cloudy (Clear); Urine Urobilinogen Normal (Normal); Urine pH 6.5 (5.0 - 8.0)
[2020-07-31 13:39] LABS: Absolute Lymphocyte Count 2.16 X10^3/uL (0.83-4.51); Absolute Neutrophil Count 6.1 X10^3/uL (2.0-7.7); Basophil# 0.02 X10^3/uL; Basophil% 0.2 % (0-1); Eosinophil# 0.07 X10^3/uL; Eosinophils% 0.8 % (0-5); Hematocrit 37.1 % (37-47); Hemoglobin 12.5 g/dL (12.0-15.0); Lymphocyte # 2.16 X10^3/ul (4.0); Lymphocyte % 24.3 % (19-41); Mean Corp Hgb Conc 33.7 g/dL (32-36); Mean Corpuscular Hgb 29.6 pg (27.0-32.0); Mean Corpuscular Volume 87.7 fL (81-99); Mean Platelet Vol. 10.4 fl (6.2-12.0); Monocyte# 0.51 X10^3/uL; Monocyte% 5.7 % (0-10); NRBC Flagged by Analyzer 0 % (0-5); Neutrophil # 6.11 X10^3/uL (2.7-7.7); Neutrophil % 68.7 % (47-70); Platelet Count 318 K/mm3 (150-450); RBC Distribution Width CV 13.3 % (11.6-14.6); Red Blood Count 4.23 M/mm3 (4.2-5.4); White Blood Count 8.9 K/mm3 (4.4-11.0)
[2020-07-31 13:51] LABS: Amphetamine Urine VISTA NEGATIVE (<1000 ng/mL); Barbiturate Urine VISTA NEGATIVE (< 200 ng/mL); Benzodiazepine Urine VISTA NEGATIVE (< 200 ng/mL); Cocaine Urine VISTA NEGATIVE (< 300 ng/mL); Ecstacy Urine VISTA NEGATIVE (< 500 ng/mL); Methadone Urine VISTA NEGATIVE (< 300 ng/mL); PCP Urine VISTA NEGATIVE (< 25 ng/mL); THC Urine VISTA NEGATIVE (< 50 ng/mL); Vista UDS pH Range 6
[2020-08-01 09:36] LABS: HIV - WCH Non-Reactive (Nonreactive); Hepatitis B Surface Antigen Non-Reactive (Nonreactive); Hepatitis C Antibody Non-Reactive (Nonreactive); Rubella IgG 11.9 IU/mL
[2020-08-01 16:32] LABS: V-Zoster IgG (Immunity) 177 index (Immune >165)
[2020-08-02 01:34] LABS: Prenatal RPR NONREACTIVE (NONREACTIVE)
== END | disposition home or self-care (01) ==
LOC: WOBLAB 11:01
PROVIDERS: PCP Family Medicine; Visit Provider Student in an Organized Health Care Education/Training Program
DX: Z34.81 Encounter for supervision of other normal pregnancy, first trimester (principal)
CPT/HCPCS: 36415; 80307; 81002; 85025; 86703; 86762; 86787; 86803; 87086; 87088; 87340

== ENCOUNTER → 2020-12-17 15:21 | Outpatient (CLI) | payer MEDICAID, SELFPAY ==
[2020-12-17 16:59] LABS: Hematocrit 31.6 % (37-47); Hemoglobin 10.6 g/dL (12.0-15.0); Mean Corp Hgb Conc 33.5 g/dL (32-36); Mean Corpuscular Hgb 30.5 pg (27.0-32.0); Mean Corpuscular Volume 91.1 fL (81-99); Mean Platelet Vol. 9.9 fl (6.2-12.0); Platelet Count 290 K/mm3 (150-450); RBC Distribution Width CV 13.7 % (11.6-14.6); RBC Distribution Width SD 46.1 fl (35.1-43.9); Red Blood Count 3.47 M/mm3 (4.2-5.4); White Blood Count 16.3 K/mm3 (4.4-11.0)
[2020-12-17 17:26] LABS: Glucose Challenge Gest 1H 50g 133 mg/dL (70-140)
== END ==
PROVIDERS: PCP Family Medicine; Visit Provider Student in an Organized Health Care Education/Training Program
DX: Z34.82 Encounter for supervision of other normal pregnancy, second trimester (principal)
CPT/HCPCS: 36415; 82950; 85027; 86850

== ENCOUNTER → 2020-12-31 16:27 | Outpatient (CLI) | payer MEDICAID, SELFPAY ==
[2020-12-31 17:30] LABS: Hematocrit 31.5 % (37-47); Hemoglobin 10.8 g/dL (12.0-15.0); Mean Corp Hgb Conc 34.3 g/dL (32-36); Mean Corpuscular Hgb 30.9 pg (27.0-32.0); Mean Corpuscular Volume 90.3 fL (81-99); Mean Platelet Vol. 10.1 fl (6.2-12.0); Platelet Count 279 K/mm3 (150-450); RBC Distribution Width CV 13.4 % (11.6-14.6); RBC Distribution Width SD 44.3 fl (35.1-43.9); Red Blood Count 3.49 M/mm3 (4.2-5.4); White Blood Count 16.3 K/mm3 (4.4-11.0)
[2020-12-31 17:54] LABS: ALB/GLOB Ratio 0.7 RATIO (0.9-2.4); AST(SGOT) 11 U/L (15-37); Alanine Aminotransfer ALT/SGPT 12 U/L (13-56); Albumin, Serum 2.8 g/dL (3.2-5.0); Alkaline Phosphatase 233 U/L (45-117); Anion Gap 7 (5-15); BUN 6 mg/dL (7-18); BUN/Creat Ratio 11.9 RATIO (10-20); Calcium,Total 8.5 mg/dL (8.5-10.1); Chloride 109 mmol/L (98-107); EST Glomerular Filtration Rate 160 mL/min (>60); Est Glom Filt Rate - Afr Amer 194 mL/min (>60); Globulin 3.8 g/dL (2.2-4.2); Glucose 69 mg/dL (74-106); LDH 150 U/L (84-246); Potassium 3.9 mmol/L (3.5-5.1); Protein, Total 6.6 g/dL (6.4-8.2); Sodium Level 138 mmol/L (136-145); Total Bilirubin < 0.10 mg/dL (0.20-1.00)
[2020-12-31 18:00] LABS: Protein, Urine (Random) 48.5 mg/dL (<11.9); Protein:Creat Ratio 204 mg/g CRE (0-200)
== END ==
PROVIDERS: PCP Family Medicine; Visit Provider Student in an Organized Health Care Education/Training Program
DX: O16.9 Unspecified maternal hypertension, unspecified trimester (principal); Z3A.00 Weeks of gestation of pregnancy not specified
CPT/HCPCS: 36415; 80053; 82570; 83615; 84156; 85027; 87086; 87088

== ENCOUNTER → 2021-02-20 15:09 | Outpatient (CLI) | payer MEDICAID, SELFPAY | PROVIDERS: PCP Family Medicine; Visit Provider Obstetrics & Gynecology | DX: Z36.85 Encounter for antenatal screening for Streptococcus B (principal) | CPT/HCPCS: 87081 ==

== ENCOUNTER 2021-02-20 18:00 | Outpatient (CLI) | payer MEDICAID, SELFPAY ==
[2021-02-20 18:21] VITALS: PULSE 111; O2SAT 93
[2021-02-20 18:22] VITALS: BP 130/73; PULSE 110; TEMP 36.7; O2SAT 98
[2021-02-20 18:29] VITALS: BMI 41.1
--- NOTE | 2021-02-24 10:59 | OB.TRI.NOTE ---
HPI - General HPI Narrative FRANCIA COTTER, is a 25 F who presents at 36+ weeks gestation for some brown discharge which he noted after a vaginal examination in the office earlier in the day. She denies any contractions or pain and has good movement. PFSH Home Medications vit no.[id number] 1 ea PO DAILY 05/13/19 [History Last Taken 02/20/21] ferrous sulfate 325 mg PO DAILY@0800 #30 tab 05/28/19 [Rx Last Taken 02/19/21] Allergy/AdvReac Type Severity Reaction Status Date / Time No Known Allergies Allergy Verified 08/15/20 11:38 Social History Smoking Status: Light Smoker (<10/day) History Elective abortions Hx Para 0 Spontaneous abortions Hx # Term Pregnancies Ectopic pregnancies Hx # Pregnancies Multiple births # of living children NST FHR Rate Baby A NST Reactive:: Yes FHR Category:: Category I Assessment & Plan Assessment/Plan (1) 36 weeks gestation of : Status: Acute Code(s): Z3A.36 - 36 weeks gestation of Plan: 36+ week intrauterine with some vaginal bleeding status post vaginal examination in the office. Reactive heart tones and not in labor. Will discharge to home with routine instructions and routine follow-up.
== END 2021-02-20 19:30 | disposition home or self-care (01) ==
LOC: WPOUT 18:08 → WP 18:10
PROVIDERS: PCP Family Medicine; Visit Provider Obstetrics & Gynecology
DX: O46.93 Antepartum hemorrhage, unspecified, third trimester (principal); O99.333 Smoking (tobacco) complicating pregnancy, third trimester; F17.200 Nicotine dependence, unspecified, uncomplicated; Z3A.36 36 weeks gestation of pregnancy; Z36.85 Encounter for antenatal screening for Streptococcus B
CPT/HCPCS: 59025; 59050; 87081; 99218; G0378

== ENCOUNTER 2021-03-07 15:15 | Outpatient (CLI) | payer MEDICAID, SELFPAY ==
[2021-03-07 15:25] VITALS: BP 132/73; PULSE 114; TEMP 36.6
[2021-03-07 15:26] VITALS: BMI 41.1
--- NOTE | 2021-03-07 22:42 | OB.TRI.NOTE ---
HPI - General General Date of Admission: 03/07/21 Chief Complaint: Decreased movement HPI Narrative FRANCIA COTTER, is a 25 F who presents with decreased movement PFSH Home Medications vit no.[id number] 1 ea PO DAILY 05/13/19 [History Last Taken 03/07/21 08:00] ferrous sulfate See Rx Instructions .ROUTE .COMPLEX 03/07/21 [History Last Taken 03/06/21] Allergy/AdvReac Type Severity Reaction Status Date / Time No Known Allergies Allergy Verified 08/15/20 11:38 Social History Smoking Status: Light Smoker (<10/day) History Elective abortions Hx Para 0 Spontaneous abortions Hx # Term Pregnancies Ectopic pregnancies Hx # Pregnancies Multiple births # of living children NST FHR Rate Baby A Baseline: 120 Variability:: Moderate Accelerations:: 15 x 15 Decelerations:: None NST Reactive:: Yes Uterine Activity:: Quiet Assessment & Plan Assessment/Plan (1) : PLAN: 25-year-old G2, P1 at 30 weeks and 6 days with decreased movement with reactive NST. All reassuring. Discharge home. Follow-up at scheduled appointments
== END 2021-03-07 16:15 | disposition home or self-care (01) ==
LOC: WPOUT 15:20 → WP 15:20
PROVIDERS: PCP Family Medicine; Visit Provider Obstetrics & Gynecology
DX: O36.8130 Decreased fetal movements, third trimester, not applicable or unspecified (principal); O99.333 Smoking (tobacco) complicating pregnancy, third trimester; F17.200 Nicotine dependence, unspecified, uncomplicated; Z3A.30 30 weeks gestation of pregnancy
CPT/HCPCS: 59050; 99218; G0378

== ENCOUNTER 2021-03-09 23:10 | Outpatient (CLI) | payer MEDICAID, SELFPAY ==
[2021-03-09 23:33] VITALS: BP 133/63; PULSE 98; TEMP 36.6; O2SAT 98
[2021-03-09 23:41] VITALS: BP 133/63; PULSE 97; TEMP 36.6; O2SAT 99
[2021-03-10 00:15] VITALS: BMI 51.3
--- NOTE | 2021-03-10 09:57 | OB.TRI.NOTE ---
HPI - General HPI Narrative FRANCIA COTTER, is a 25 F who presents with some contractions and is concerned she might be in labor. PFSH Home Medications vit no.[id number] 1 ea PO DAILY 05/13/19 [History Last Taken 03/10/21] ferrous sulfate See Rx Instructions .ROUTE .COMPLEX 03/07/21 [History Last Taken 03/08/21] Allergy/AdvReac Type Severity Reaction Status Date / Time No Known Allergies Allergy Verified 08/15/20 11:38 Social History Smoking Status: Light Smoker (<10/day) History Elective abortions Hx Para 0 Spontaneous abortions Hx # Term Pregnancies Ectopic pregnancies Hx # Pregnancies Multiple births # of living children NST FHR Rate Baby A NST Reactive:: Yes FHR Category:: Category I Assessment & Plan Assessment/Plan (1) False labor, antepartum: PLAN: 39+ week intrauterine with some false labor. No change in cervical exam after monitoring for several hours. Reactive nonstress test. Will discharge to home with routine labor instructions given.
== END 2021-03-10 02:20 ==
LOC: WPOUT 23:14 → WP 23:15
PROVIDERS: PCP Family Medicine; Referring Provider Obstetrics & Gynecology; Visit Provider Obstetrics & Gynecology
DX: O47.1 False labor at or after 37 completed weeks of gestation (principal); O99.333 Smoking (tobacco) complicating pregnancy, third trimester; F17.200 Nicotine dependence, unspecified, uncomplicated; Z3A.39 39 weeks gestation of pregnancy
CPT/HCPCS: 59025; 59050; 99218; G0378

== ENCOUNTER 2021-03-13 04:50 | Inpatient (IN) | payer MEDICAID, SELFPAY ==
--- NOTE | 2021-03-12 14:14 | PCM.HP.BLA ---
History and Physical Date of Admission: 03/13/21 ACOG ANTEPARTUM RECORD - HISTORY AND PHYSICAL (03/12/2021) Name: FRANCIA COTTER History of this : This is a 25 year old [id number] presents at 39 wks + 5 days gestation for repeat . OB Physician: Ghazal Oconnell Marshall's Physician: Dr John Lund ...................................................................... : 1995 Age: 25 Address: [address] [place] [address] [address] [place] [address] Phone: ([phone] Insurance Carrier: [employer] DEPT [phone] Emergency Contact: ARMAND RICE [phone] ...................................................................... Final BRANDON: 03/15/21 By Ultrasound: 7 weeks 4 days PARITY: (G-Total Pregnancies P-Fullterm,Premature,Induced AB,Spont AB, Ectopics, Multiple,Living) BRANDON CONFIRMATION: By LMP: 06/08/20 Initial Exam: 03/15/21 By First Ultrasound Exam: 03/17/21 Final BRANDON: 03/15/21 OB PROBLEM LIST: Please enc office Class in Spring 2020. Decline AFP and CF. 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 Mild anemia ferrous sulfate daily for Hgb 10.9 g/dl Mild oligo 39 wks; start 2x/wk NST and weekly U/S Prior ----plan --decided to have R- instead Smoker x 7+y. Currently 2-5 cigs daily. Trying to quit. ATQ ALLERGIES: No Known Drug Allergies MEDICATIONS: Colace 100 mg capsule two times daily Gummy 400 mcg-35 mg-25 mg-5 mg chewable tablet One pill by mouth once a day SOCIAL HISTORY: Smoking - Smoker x 7 y. 2-5 cigs daily. ATQ. Alcohol Use - holidays not while Diet - balanced Diet, One cup of coffee day and Water 4-5 bottles daily. Lifestyle - single and engaged Exercise - Active w toddler. Enc to walk 20 min daily. 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 Marijuana last use 4 1/2 y ago. Sexual Activity - did not discuss sexual history Residence - [facility] Place of - [place] Spouse-Sig Other Name - Brendan Rice Spouse-Sig Other Occupation - [employer] Spouse-Sig Other Phone No - [phone] Children Name(s) - Farhad (19) PRIOR DELIVERY HISTORY DEL DATE GEST LAB WT LB WT OZ TYPE ANES LABOR [place] Jun 13 38 0 5 0 C-Sec Spinal No ANTEPARTUM FLOW CHART VISIT GE RTC FU F F HI U U DATE WK MD WKS HT PN HR M SS BP ED WT HI GL D EF ST __ ____ ___ __ __ ___ __ __ __ ___ __ __ __ ___ __ 18 February 39 JMW 3 38 V + + 110/60 sl 218 1+ - 14 February 39 JMW 1 37 V + + 110/76 sl 218 tr - 2 25 -2 27 February 37 JMW 1 37 + + 112/64 0 219 1+ ne S Jan 36 JMW 1 37 V + + 106/70 0 217 2+ ne ft 50 -2 22 Jan 35 CM 1 V U+ + 134/74 0 218 1+ - 08 Jan 33 CM 2 33 V + + 112/68 0 214 - - 25 Mar 31 CM 2 31 V + + 124/84 0 211 1+ ne 08 Mar 29 CM 2 29 + + 144/72 sl 212 22 Feb 27 CM 2 27 + + 144/60 0 208 tr ne Oct 23 CM 4 23 + + 132/74 0 202 tr ne Sep 19 CM + + 120/70 0 200 - - 30 Nov 15 CM 4 + + 130/62 0 199 tr ne 03 Aug 11 CM 4 U+ O 124/70 0 201 tr ne 06 Jul 7 CM 4 U+ O 132/68 0 197 ANTEPARTUM NOTE(S): Mar 12 2021: NST, BPP Today,Feeling Well, BPP 8/8; wants C/S Mar 08 2021: Sono Today,NST Good FM, oligo Feb 27 2021: US today Feb 20 2021: US , GBS today, BPP 8/8 today; good FM Feb 14 2021: Jan 31 2021: pelvic pressure Jan 17 2021: Dec 31 2020: Dec 17 2020: Rhogam, GCT today Nov 22 2020: Oct 22 2020: Sep 24 2020: Aug 28 2020: Jul 31 2020: COMPREHENSIVE ANTEPARTUM NOTE(S): Feb 28 2021: H taken to OB. tkg Feb 27 2021: Francia is here for PNV following US. States she is feeling tired and legs hurt occasionally. No edema noted today. Having no ctx. Having good FM. Would like to be examined today. No complaints. Urine 1+/neg. LSS Feb 20 2021: Francia is here for PNV following US. GBS completed. LARC form signed, declined. consents signed. Feeling tired and having c/o heartburn. Advised TUMS or Pepcid. No edema noted today. Having good FM. No other concerns today. Urine 2+/neg. LSS Feb 14 2021: 35/6w visit. Obesity. Growth today EFW 13%tile, AC 17.6%, HC <2.3%. Hx of SGA with term delivery 5lb. CD wnl 86%tile. Weekly BPPs with visits. Desires TOLAC. GBS and consents to be signed next week. F/u 1w. CM Jan 31 2021: is here for a PNV. Good FM. No edema present. Reports pelvic pressure. No concerns expressed at this time. MK Jan 31 2021: 33/6w visit. Pelvic pressure - discussed supportive care, labor precautions. Obesity - growth next visit. Desires TOLAC - needs consents signed. F/u 2w CM Jan 17 2021: is here for PNV. Admits to being very tired. Is not able to get rest throughout the day. Having BH ctx with good FM. Has not noticed any swelling in hands or legs. Urine 1+/neg. LSS Jan 17 2021: 31/6w visit. Obesity - plan for growth 36w. Desires TOLAC - have discussed risks. Will sign consent 36w. F/u 2w. cm Dec 31 2020: BP 144/70. No headaches. Minimal edema in ankles. Reports smoking 2 cigarettes / day. States she did get Tdap vaccine. Good FM. Taking iron supplement 3 x week. Dec 31 2020: 29/3w visit. BP elevated today and last visit. Asympotmatic, exam wnl. Labs sent. F/u 2w. CM Dec 17 2020: is here for PNV. Had GCT drawn today. Rhogam given. States she is feeling good FM. No edema noted in hands or feet. No concerns for today. Urine dippe tr/neg. LSS Dec 17 2020: 27/3w visit. Planning TOLAC. Obesity - plan for growth 36w. Discussed TDap. F/u 2w. CM Nov 22 2020: is here for PNV. Glucola and instruction sheet given. Voiced understanding. To be done at next visit. Pt A neg. Claims FOB neg as well. Having good FM. No edema noted. Eating and taking fluids without difficulty. No concerns today. LSS Nov 22 2020: 23/4w visit. Leaning more towards repeat c/s at this time. Will schedule next visit. Plan growth us third trimester. F/u 4w. CM Oct 22 2020: 19/3w visit. Anatomy wnl today. Deciding between TOLAC and repeat c/s. F/u 4w. 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 Her fiance, Brendan works at [employer] and [employer]. The pg was a surprise but they are ok w it. Their son, Farhad is 16 months old. He was born at 5# by PCS for NRFHT prior to any labor. Francia has NKA to drugs, latex, food or the environment. Sep 24 2020: Francia is here for PNV. Having no c/o N/V. States she feels pretty good. No edema noted. Thinks she may be starting to feel FM. Urine dipped tr and neg. No concerns for today. LSS Sep 24 2020: 15/3w visit. Feeling well. F/u 4w with anatomy. CM Aug 28 2020: at 11/4w routine visit. Doing well. FM/HR by bedside US today. F/u 4w. CM Aug 28 2020: Francia is here for PNV. States she is feeling good without N/V. Urine dipped tr and neg. Instructed to schedule and keep tele health visit. No complaints or concerns for this visit. LSS REVIEW OF SYSTEMS: GENERAL - Denies fever, or chills SKIN - Denies rash, new skin lesions, or change in moles EYES - Denies blurred vision, or change in visual acuity EARS - Denies ear pain, or difficulty hearing NOSE - Denies nasal congestion, discharge, or bleeding MOUTH - Denies sore throat, or difficulty swallowing NECK - Denies pain or swelling RESPIRATORY - Denies shortness of breath, cough, wheezing CARDIOVASCULAR - Denies palpitations, chest pain, orthopnea, PND, peripheral edema, syncope or claudication GASTROINTESTINAL - Denies nausea, vomiting, diarrhea, constipation, Denies abdominal pain, melena and or bright red blood GENITOURINARY - Denies dysuria, frequency of urination, urgency, or hesitancy MUSCULOSKELETAL - Denies joint or muscle pain, or back pain NEUROLOGICAL - Denies localized numbness, weakness, or tingling PSYCHIATRIC - Denies depression, anxiety, substance abuse or suicide attempts ENDOCRINE - Denies heat or cold intolerance, weight loss or gain, increasing thirst HEMATO-IMMUNOLOGIC - Denies easy bruising, bleeding, oral ulcerations or recurrent infections GENETICS SCREENING: Age 35+ years: No Thalassemia: No Neural Tube Defect: No Down Syndrome: No CHANTAL-SACHS: No Sickle Cell Disease: No Hemophilia: No Musc. Dystrophy: No Cystic Fibrosis: No-declines screening [place] Chorea: No Mental Retardation: No Fragile X: No Other genetic: No Other defects: No SABs/still births: No Drugs since LMP: Yes INFECTION HISTORY: High risk AIDS: No High risk Hepatitis: No Exposed to TB: No Exposed to Herpes: No Rash/viral illness since LMP: No History of STD: No MENSTRUAL HISTORY: *Menses Amount/Duration: 3-4Menses Regularity: RegularFrequency: monthlyMenarche (Age Onset): 17* PAST SUMMARY: PARITY: 1. Total Pregnancies............ 2 2. Full Term Pregnancies........ 1 3. Premature.................... 0 4. Abortions - Induced.......... 0 5. Abortions - Spontaneous...... 0 6. Ectopics..................... 0 7. Multiple Births.............. 0 8. Living Children.............. 1 PAST #1: Date of :.................. 05/27/19 Gestation Weeks:................ 38 Length of labor(hours):......... 0 Sex:............................ M Weight-lbs:............... 5 Weight-oz:................ 0 Type of Delivery:............... C-Sect Type of Anesthesia:............. Spinal Place of Delivery:.............. [place] Treatment of Labor?:.... No Comment: DISTRESS PHYSICAL EXAMINATION General Appearence: 25 yo female in no acute distress Vital Signs: AF, VSS Heart: RRR without rubs or gallops Lungs: CTA x 2 Breasts: deferred Abdomen: gravid Pelvis: Cervix: Presentation: cephalic Station: Fetus: Size: AGA Movement: present Heart: present LAB TEST(S) ORDERED SINCE:06/18/20 08/02/2020 RPR 08/02/2020 CULTURE, URINE 08/01/2020 V-ZOSTER IGG (IMMUNITY) 08/01/2020 RUBELLA IGG 08/01/2020 HIV - [facility] 08/01/2020 HEPATITIS C ANTIBODY 08/01/2020 HEPATITIS B SURFACE ANTIGEN 07/31/2020 URINE DRUG SCREEN (VISTA) 07/31/2020 URINALYSIS, ROUTINE (DIPSTICK) 07/31/2020 T AND S-NO CHARGE W/PNP 07/31/2020 CBC W/DIFF, AUTOMATED 07/19/2020 CHLAMYDIA/GC BEE APTIMA 02/23/2021 RULE OUT BETA STREP (GRP. B) 01/03/2021 CULTURE, URINE 12/31/2020 PROTEIN+CREATININE RATIO,URINE 12/31/2020 LDH 12/31/2020 COMPREHENSIVE METABOLIC PROFIL 12/31/2020 CBC-COMPLETE BLOOD CNT NO DIFF 12/17/2020 GLUCOSE CHALLENGE GEST 1H 50G 12/17/2020 CBC-COMPLETE BLOOD CNT NO DIFF 12/17/2020 [id number] == ==== Order Observation Description Value Ref_Range A* Site == ==== RULE OUT BETA S NOTE [facility]VIN CULTURE, URINE NOTE [facility] PROTEIN+CREATIN NOTE [facility] PROTEIN+CREATIN UR CREAT 238.00 mg/dL NO RANGE EST. ML PROTEIN+CREATIN PROTEIN,UR.RAN. 48.5 mg/dL <11.9 H ML PROTEIN+CREATIN PROT:CRE RATIO 204 mg/g CRE 0-200 H ML LDH NOTE COLVIN LDH LDH 150 U/L 84-246 ML COMPREHENSIVE M NOTE [facility] COMPREHENSIVE M GLU 69 mg/dL 74-106 L ML Please note revised GLUCOSE reference range effective 11/27/2017. COMPREHENSIVE M BUN 6 mg/dL 7-18 L ML COMPREHENSIVE M CREAT,SERUM 0.50 mg/dL 0.55-1.02 L ML The validity of the calculated GFR GFRAA in patients over 70 years has not been determined. Clinical correlation is essential. COMPREHENSIVE M EST GFR 160 mL/min >60 ML Non- GFR Calc COMPREHENSIVE M EST GFR - AA 194 mL/min >60 ML GFR Calc COMPREHENSIVE M BUN/CRE 11.9 RATIO 10-20 ML COMPREHENSIVE M T PROT 6.6 g/dL 6.4-8.2 ML COMPREHENSIVE M ALB 2.8 g/dL 3.2-5.0 L ML COMPREHENSIVE M GLOB 3.8 g/dL 2.2-4.2 ML COMPREHENSIVE M A/G 0.7 RATIO 0.9-2.4 L ML COMPREHENSIVE M CA,TOTAL 8.5 mg/dL 8.5-10.1 ML COMPREHENSIVE M AST 11 U/L 15-37 L ML COMPREHENSIVE M ALK P 233 U/L 45-117 H ML COMPREHENSIVE M ALT 12 U/L 13-56 L ML COMPREHENSIVE M T BILI < 0.10 mg/dL 0.20-1.00 L ML For patients on eltrombopag therapy, use of Dimension [place] TBIL is not recommended. COMPREHENSIVE M NA 138 mmol/L 136-145 ML COMPREHENSIVE M POTASSIUM 3.9 mmol/L 3.5-5.1 ML COMPREHENSIVE M CL 109 mmol/L 98-107 H ML COMPREHENSIVE M CO2 22.0 mmol/L 21.0-32.0 ML COMPREHENSIVE M GAP 7 5-15 ML CBC-COMPLETE BL NOTE COLVIN CBC-COMPLETE BL WBC 16.3 K/mm3 4.4-11.0 H ML CBC-COMPLETE BL RBC 3.49 M/mm3 4.2-5.4 L ML CBC-COMPLETE BL HGB 10.8 g/dL 12.0-15.0 L ML CBC-COMPLETE BL HCT 31.5 37-47 L ML CBC-COMPLETE BL MCV 90.3 fL 81-99 ML CBC-COMPLETE BL MCH 30.9 pg 27.0-32.0 ML CBC-COMPLETE BL MCHC 34.3 g/dL 32-36 ML CBC-COMPLETE BL RDW CV 13.4 11.6-14.6 ML CBC-COMPLETE BL RDW SD 44.3 fl 35.1-43.9 H ML CBC-COMPLETE BL PLT 279 K/mm3 150-450 ML CBC-COMPLETE BL MPV 10.1 fl 6.2-12.0 ML [facility]~[address] [place], [address]~ [id number] AB SCREEN GEL NEGATIVE ML GLUCOSE CHALLEN NOTE COLVIN GLUCOSE CHALLEN GLU GEST 50G 1H 133 mg/dL 70-140 ML CBC-COMPLETE BL NOTE COLV[facility] CBC-COMPLETE BL WBC 16.3 K/mm3 4.4-11.0 H ML CBC-COMPLETE BL RBC 3.47 M/mm3 4.2-5.4 L ML CBC-COMPLETE BL HGB 10.6 g/dL 12.0-15.0 L ML CBC-COMPLETE BL HCT 31.6 37-47 L ML CBC-COMPLETE BL MCV 91.1 fL 81-99 ML CBC-COMPLETE BL MCH 30.5 pg 27.0-32.0 ML CBC-COMPLETE BL MCHC 33.5 g/dL 32-36 ML CBC-COMPLETE BL RDW CV 13.7 11.6-14.6 ML CBC-COMPLETE BL RDW SD 46.1 fl 35.1-43.9 H ML CBC-COMPLETE BL PLT 290 K/mm3 150-450 ML CBC-COMPLETE BL MPV 9.9 fl 6.2-12.0 ML CULTURE, URINE NOTE COLVIN RPR NOTE [facility]VIN RPR RPR NONREACTIVE NONREACTIVE ML V-ZOSTER IGG (I NOTE COLVIN V-ZOSTER IGG (I VZOST IGG [id number] index Immune >165 LC Negative <135 Equivocal 135 - 165 Positive >165 A positive result generally indicates exposure to the pathogen or administration of specific immunoglobulins, but it is not indication of active infection or stage of disease. Performed at: - [facility] [id number] Associate Financial Analyst: Suresh Russo PhD, Phone: [phone] HEPATITIS C ANT NOTE [facility] HEPATITIS C ANT HEPATITIS C AB Non-Reactive Nonreactive ML Non Reactive: < 0.8 Equivocal: >/= 0.8 to < 1.0 Reactive: >/= 1.0 The CDC recommends that a reactive/equivocal HCV antibody result be followed up by the HCV Nucleic Acid Amplification test ([id number]) HEPATITIS B [place] NOTE [facility]IN HEPATITIS B [place] HEPB SURFACE AG Non-Reactive Nonreactive ML HIV - [facility] NOTE [facility] HIV - [facility] HIV - [facility] Non-Reactive Nonreactive ML RUBELLA IGG NOTE [place] RUBELLA IGG RUBELLA IGG 11.9 IU/mL ML Antibody results Interpretation of Immune Status < 5 IU/ml Presumed Non-immune 5 - < 10 IU/ml Equivocal > or = 10 IU/ml Presumed Immune Reason for Type AND Screen/Red Cells: Surgery? N [facility]~[address] [place], [address]~ T AND BLOOD TYPE GEL A NEGATIVE N ML T AND AB SCREEN GEL NEGATIVE N ML URINE DRUG SCRE NOTE [facility] URINE DRUG SCRE TO BE CONFIRMED ML CONFIRMATORY TESTING FOR ALL POSITIVE URINE DRUG SCREEN RESULTS WILL ONLY BE SENT OUT UPON PHYSICIAN ORDER. VISTA Urine Drug Screen methods provide only preliminary analytical test results. A more specific alternate chemical method must be used in order to obtain a confirmed analytical result. Gas chromatography/mass spectrometery (GC/MS) is the preferred confirmatory method. Clinical consideration and professional judgement should be applied to any drug of abuse test result, particularly when preliminary positive results are used. URINE TCA TESTING MUST BE ORDERED SEPARATELY. USE TEST MNEMONIC: UTCA URINE DRUG SCRE VISTA UDS PH 6 ML URINE DRUG SCRE AMPHETAMINES NEGATIVE <1000 ng/mL ML URINE DRUG SCRE BARBITIURATES NEGATIVE < 200 ng/mL ML URINE DRUG SCRE BENZODIAZIPINE NEGATIVE < 200 ng/mL ML URINE DRUG SCRE COCAINE NEGATIVE < 300 ng/mL ML URINE DRUG SCRE ECSTACY NEGATIVE < 500 ng/mL ML URINE DRUG SCRE METHADONE NEGATIVE < 300 ng/mL ML URINE DRUG SCRE OPIATES NEGATIVE < 300 ng/mL ML URINE DRUG SCRE PCP NEGATIVE < 25 ng/mL ML URINE DRUG SCRE THC NEGATIVE < 50 ng/mL ML URINALYSIS, ROU NOTE [facility] URINALYSIS, ROU COLOR Yellow Yellow ML URINALYSIS, ROU CLARITY Sl. Cloudy Clear ML URINALYSIS, ROU GLUCOSE, UR Normal mg/dl Normal ML URINALYSIS, ROU BILIRUBIN URINE Negative mg/dL Negative ML URINALYSIS, ROU KETONE UR 50 mg/dl Negative H ML URINALYSIS, ROU SP.GR. DIPSTX 1.015 1.002-1.030 ML URINALYSIS, ROU PH UR 6.5 5.0 - 8.0 ML URINALYSIS, ROU PROT DIPSTX 30 mg/dl Negative H ML URINALYSIS, ROU UROBILI Normal mg/dl Normal ML URINALYSIS, ROU NITRITE UR Negative Negative ML URINALYSIS, ROU OCCULT BLOOD-UR Negative /ul Negative ML URINALYSIS, ROU LEUK ESTERASE 25 /ul Negative H ML CBC W/DIFF, AUT NOTE [place] CBC W/DIFF, AUT WBC 8.9 K/mm3 4.4-11.0 ML CBC W/DIFF, AUT RBC 4.23 M/mm3 4.2-5.4 ML CBC W/DIFF, AUT HGB 12.5 g/dL 12.0-15.0 ML CBC W/DIFF, AUT HCT 37.1 % 37-47 ML CBC W/DIFF, AUT MCV 87.7 fL 81-99 ML CBC W/DIFF, AUT MCH 29.6 pg 27.0-32.0 ML CBC W/DIFF, AUT MCHC 33.7 g/dL 32-36 ML CBC W/DIFF, AUT RDW CV 13.3 % 11.6-14.6 ML CBC W/DIFF, AUT RDW SD 43.0 fl 35.1-43.9 ML CBC W/DIFF, AUT PLT 318 K/mm3 150-450 ML CBC W/DIFF, AUT MPV 10.4 fl 6.2-12.0 ML CBC W/DIFF, AUT NEUT% 68.7 % 47-70 ML CBC W/DIFF, AUT LY% 24.3 % 19-41 ML CBC W/DIFF, AUT MONO% 5.7 % 0-10 ML CBC W/DIFF, AUT EO% 0.8 % 0-5 ML CBC W/DIFF, AUT BASO% 0.2 % 0-1 ML CBC W/DIFF, AUT IM GRAN % 0.300 % 0.0-0.9 ML IG% - Immature Granulocytes (promyelocytes, myelocytes and metamyelocytes) > 1% indicates that a LEFT SHIFT is Present. CBC W/DIFF, AUT ABSOLUTE NEUT 6.1 X10 3/uL 2.0-7.7 ML CBC W/DIFF, AUT ABSOLUTE LYMPH 2.16 X10 3/uL 0.83-4.51 ML CBC W/DIFF, AUT NRBC, FLAGGED 0 % 0-5 ML CHLAMYDIA/GC NA NOTE [facility] CHLAMYDIA/GC NA CHLAMY,NUC ACID Negative Negative LC CHLAMYDIA/GC NA GC BY NUC ACID Negative Negative LC Performed at: = - [facility] [id number] Associate Financial Analyst: Corina Schwartz MD, Phone: [phone] Group B Beta Streptococcus is not isolated. Urine Culture ORGANISM 1: Mixed Gram Positive Organisms [place] Count >100,000 MIX CULTURE Mixed contaminants. Submit a new specimen if indicated. Urine Culture Below infection level. ORGANISM 1: Mixed Gram Positive Organisms [place] Count 1000-10,000 MIX CULTURE Mixed contaminants. Submit a new specimen if indicated. == ==== Impression /Plan: 39 wks + 5 days intrauterine for repeat . Preparations in progress for delivery.
[2021-03-13] VITALS (20 sets, daily range): BP systolic 87–133; BP diastolic 48–74; PULSE 64–114; RESP 16–18; TEMP 36.2–37.1; O2SAT 97–100; BMI 42.3
[2021-03-13] MEDS: Lactated Ringers 1,000 ML 999 ML IV (05:49)
[2021-03-13] MEDS: Acetaminophen 500 MG Tablet 1000 MG PO ×3 (05:49→18:36)
[2021-03-13 05:59] LABS: Absolute Lymphocyte Count 2.17 X10^3/uL (0.83-4.51); Absolute Neutrophil Count 11.2 X10^3/uL (2.0-7.7); Basophil# 0.03 X10^3/uL; Basophil% 0.2 % (0-1); Eosinophil# 0.07 X10^3/uL; Eosinophils% 0.5 % (0-5); Hematocrit 31.7 % (37-47); Hemoglobin 10.5 g/dL (12.0-15.0); Lymphocyte # 2.17 X10^3/ul (0.83-4.51); Lymphocyte % 15.2 % (19-41); Mean Corp Hgb Conc 33.1 g/dL (32-36); Mean Corpuscular Volume 90.6 fL (81-99); Mean Platelet Vol. 9.6 fl (6.2-12.0); Monocyte# 0.64 X10^3/uL; Monocyte% 4.5 % (0-10); NRBC Flagged by Analyzer 0 % (0-5); Neutrophil # 11.21 X10^3/uL (2.7-7.7); Neutrophil % 78.2 % (47-70); Platelet Count 265 K/mm3 (150-450); RBC Distribution Width CV 13.7 % (11.6-14.6); RBC Distribution Width SD 45.1 fl (35.1-43.9); White Blood Count 14.3 K/mm3 (4.4-11.0)
[2021-03-13] MEDS: Lactated Ringers 1,000 ML 150 ML IV (06:45)
[2021-03-13] MEDS: Sodium Citrate/Citric Acid 30 ML UDC PO (07:09)
[2021-03-13] MEDS: Cefazolin 2 GM in 0.9% Normal Saline 100 ML IV (07:18)
--- NOTE | 2021-03-13 07:22 | EX.PCM.OBRPT ---
Maternal Data Information Final BRANDON: 03/15/21 Final BRANDON Source: US <20 weeks Gestational age: 39w5d Details Operative Information Date of Procedure: 03/13/21 Pre-Operative Diagnosis: Prior Section Post-Operative Diagnosis: Prior Section Classification: Scheduled Procedure Type: low transverse Type of Anesthesia: Spinal (With Duramorph) Antibiotic Given: Ancef 2 grams IV x1 Drain: Arias to straight drain Estimated Blood Loss: 500 cc Fluids Replaced: Crystalloid Findings Description of Procedure: Surgeon: Darío Leo MD, FACOG Indication: This is a 25-year-old who presents for her second at 39+ weeks gestation. care has otherwise been uneventful. The patient has been counseled regarding the risk and indications of this procedure including the possibility of bleeding infection and injury to surrounding structures such as bowel bladder. All questions were answered. Procedure: Patient was taken to the operating room where after spinal anesthesia was placed, the patient was prepped and draped in usual sterile fashion and a Arias catheter was placed. The abdomen was entered through the patient's prior Pfannenstiel incision and peritoneum was entered bluntly. After developing a bladder flap on the lower uterine segment a low transverse incision was made on the uterus and head was easily delivered onto the operative field the nose mouth and oropharynx were bulb suctioned. Subsequently a viable male infant was born with Apgars of 8/9. The infant was noted to cry move all extremities vigorously on the operative field. The umbilical cord was doubly clamped and ligated and infant handed to the nursery personnel who were present for the delivery. Placenta was delivered and noted to be 3 vessels and normal. Uterus was exteriorized and remaining placental tissue was removed. The uterus was then closed in 2 layers first with running locked 0 Vicryl suture followed by a second imbricating layer with 0 Vicryl suture. 0 Vicryl suture was then used in a horizontal mattress interrupted fashion to affect final hemostasis of the uterine incision line. Normal fallopian tubes and ovaries were visualized and the uterus was returned to the pelvis. Hemostasis was noted and rectus abdominis muscles were reapproximated in the midline with interrupted Number 0 Vicryl suture in a horizontal mattress fashion. Fascia was closed with running Number 1 PDS Strata fix suture. Subcutaneous tissue was irrigated with copious amounts of saline solution and then closed with running 3-0 Vicryl suture. Skin was closed with 4-0 monocryl suture in a running subcuticular fashion. Steri strips and a Mepilex dressing were placed across the incision. The patient tolerated the procedure well and was taken to the recovery room in satisfactory condition. Sponge, needle, and instrument counts were all reportedly correct. EBL was less than 500 cc. Ancef 2 gms IV was given prior to the procedure. Spicemen to Pathology: None Complications: None Presentation: Positive for Vertex Amniotic Fluid Description: Clear Placental Delivery Description: Spontaneous Placenta Disposition: [facility] Specimen(s) Sent to Pathology: None Cord Vessel Description: 3 Vessels Cord Entanglement: None Infant A Gender: Male (1 minute): 8 (5 minute): 9 Complications Risks of Surgery Discussed w/Patient: Bleeding, Infection and Injury to surrounding structure(s) including bowel and bladder Complications: None Admit VTE Documentation VTE Present on Admission: Yes VTE Mechan Device Prophylaxis: SCD's VTE Pharm Prophylaxis Ordered: Yes
--- NOTE | 2021-03-13 07:28 | PCM.DC ---
Discharge Instructions Diet Discharge Diet: No restrictions Activity Discharge Activity: May not drive while taking narcotic pain medications., May Shower and May Take a Tub Bath (in 7 days) May resume sexual activity in: 4-6 weeks Lifting Restrictions: 20 pounds for 6 weeks Dressing / Incision Call your doctor if your incision/area has: Continuous Slow Oozing, Sudden Increased Bleeding, Increased Pain/ Swelling, Increased Redness and Foul Smelling Discharge Call your doctor if you observe: Fever of 101 or Higher, Inability to urinate, Inability to have a bowel movement and Using more than one pad per hour Follow Up Care Please Follow Up With: Darío Leo MD When: Call [phone] for appointment to be seen in 2 weeks. Test Results: Test results from this visit will be discussed in further detail at your follow-up appointment, if applicable. Discharge Plan Admission Admit Date/Time: 03/13/21 04:50 Primary Reason for Your Visit: Repeat Attending Provider: Darío Leo Primary Care Provider: John Lund Discharge Orders/Prescriptions Prescriptions: New oxycodone 5 mg capsule 5 mg PO Q6H PRN (Reason: pain) 7 Days Qty: 14 RF: 0 docusate sodium 100 mg tablet 100 mg PO BID PRN (Reason: constipation) Qty: 60 RF: 1 Continued vit no.[id number] 1 EACH tablet 1 ea PO DAILY RF: 0 ferrous sulfate 325 MG tablet See Rx Instructions .ROUTE .COMPLEX RF: 0 Referrals / Follow Up: John Lund MD [Primary Care Provider] - Disposition Disposition (needs filled in before D/C Order can be placed): Home, self care
[2021-03-13] MEDS: Oxytocin 30 units/NS 500 ml 30 UNITS/500 ML IV.SOLN 167 UNITS IV (09:30)
[2021-03-13] MEDS: Ketorolac 30 MG/ML Syringe IV ×2 (09:47→16:02)
--- NOTE | 2021-03-13 10:52 | NURSING ---
nurse called lab and talked to Kathleen to have someone come and draw Rhogam workup
[2021-03-13] MEDS: Lactated Ringers 1,000 ML 100 ML IV (12:27)
[2021-03-13] MEDS: Cefazolin 1 GM/50 ML BAG IV (15:00)
[2021-03-13] MEDS: DiphenhydrAMINE 25 MG Capsule PO (21:07)
[2021-03-13] MEDS: Enoxaparin 40 MG/0.4 ML Syringe SC (21:07)
--- NOTE | 2021-03-13 22:00 | NURSING ---
Pt off unit with charger operator helper to smoke.
[2021-03-13] MEDS: Ibuprofen 600 MG Tablet PO (23:14)
[2021-03-14 01:18] VITALS: RESP 16; O2SAT 96
[2021-03-14 01:52] VITALS: BP 114/63; PULSE 71; RESP 18; TEMP 36.3; O2SAT 97
[2021-03-14] MEDS: Acetaminophen 500 MG Tablet 1000 MG PO ×2 (02:12→08:28)
[2021-03-14 03:00] VITALS: RESP 18; O2SAT 97
[2021-03-14 05:26] VITALS: BP 126/71; PULSE 85; RESP 18; O2SAT 99
[2021-03-14] MEDS: Ibuprofen 600 MG Tablet PO (05:38)
[2021-03-14 06:57] LABS: Hematocrit 30.5 % (37-47); Hemoglobin 10.1 g/dL (12.0-15.0); Mean Corp Hgb Conc 33.1 g/dL (32-36); Mean Corpuscular Hgb 30.1 pg (27.0-32.0); Mean Corpuscular Volume 90.8 fL (81-99); Mean Platelet Vol. 9.7 fl (6.2-12.0); Platelet Count 270 K/mm3 (150-450); RBC Distribution Width CV 14.1 % (11.6-14.6); RBC Distribution Width SD 47.2 fl (35.1-43.9); Red Blood Count 3.36 M/mm3 (4.2-5.4); White Blood Count 14.1 K/mm3 (4.4-11.0)
--- NOTE | 2021-03-14 07:43 | PCM.DC.SUM ---
Providers Date of Admission: 03/13/21 Primary Care Physician: Dr. John Lund MD Reason For Visit: C SECTION Diagnosis Discharge Diagnosis (1) Delivery by section: Status: Acute Medications at Discharge Home Medications vit no.[id number] 1 ea PO DAILY 05/13/19 ferrous sulfate See Rx Instructions .ROUTE .COMPLEX 03/07/21 docusate sodium 100 mg PO BID PRN #60 tab 03/13/21 oxycodone 5 mg PO Q6H PRN 7 Days #14 cap 03/13/21 Hospital Course Operations section Summary of Care Provided Hospital Course: 25-year-old 2 para 1-0-0-1 admitted for scheduled repeat section. She underwent an uncomplicated procedure. Her was transferred for medical complication. Patient met discharge criteria was out of bed ambulating voiding and tolerating p.o. and was discharged to home on postop day 1. Physical Exam Narrative Pain is controlled. Out of bed and ambulating without difficulty. No flatus. Voiding without difficulty. Tolerates regular diet. Const alert, oriented x3 and no apparent distress Resp normal respiratory effort, normal air movement and clear to auscultation bilaterally Cardio regular rate, regular rhythm, S1 normal heart sound and S2 normal heart sound GI normal to inspection, nondistended, normoactive bowel sounds, soft to palpation, non-tender and non-distended Manual OB Exam: other lochia scant Uterus Palpation: uterus fundus firm Extremity no calf tenderness ABG / Lab / Microbiology Data Result Diagrams: 03/14/21 06:38 Laboratory: Laboratory Results - last 24 hr 03/13/21 03/14/21 11:00 06:38 WBC 14.1 H RBC 3.36 L Hgb 10.1 L Hct 30.5 L MCV 90.8 MCH 30.1 MCHC 33.1 RDW Std Deviation 47.2 H RDW Coeff of Stephan 14.1 Plt Count 270 MPV 9.7 Screen NEGATIVE Baby's Blood Type O POSITIVE Baby's DRU NEGATIVE Microbiology: Microbiology 03/13/21 05:50 SARS-CoV-2 Antigen (Rapid) - Final Interface Orders Microbiology 03/13/21 05:50 Interface Orders SARS-CoV-2 Antigen (Rapid) - Final D/C Instructions Discharge Diet: No restrictions Discharge Activity: May not drive while taking narcotic pain medications., May Shower and May Take a Tub Bath (in 7 days) May resume sexual activity in: 4-6 weeks Call your doctor if your incision/area has: Continuous Slow Oozing, Sudden Increased Bleeding, Increased Pain/ Swelling, Increased Redness and Foul Smelling Discharge Call your doctor if you observe: Fever of 101 or Higher, Inability to urinate, Inability to have a bowel movement and Using more than one pad per hour Please Follow Up With: Darío Leo MD When: Call [phone] for appointment to be seen in 2 weeks. Meaningful Use Info Meaningful Use Diagnoses (Choose all that apply): None applicable Discharge Plan Admission Admit Date/Time: 03/13/21 04:50 Primary Reason for Your Visit: Repeat Attending Provider: Darío Leo Primary Care Provider: John Lund Instructions Additional Instructions / Restrictions: Remove top dressing in 24 hours Discharge Orders/Prescriptions Prescriptions: New oxycodone 5 mg capsule 5 mg PO Q6H PRN (Reason: pain) 7 Days Qty: 14 RF: 0 docusate sodium 100 mg tablet 100 mg PO BID PRN (Reason: constipation) Qty: 60 RF: 1 Continued vit no.[id number] 1 EACH tablet 1 ea PO DAILY RF: 0 ferrous sulfate 325 MG tablet See Rx Instructions .ROUTE .COMPLEX RF: 0 Referrals / Follow Up: John Lund MD [Primary Care Provider] - Disposition Disposition (needs filled in before D/C Order can be placed): Home, self care
[2021-03-14 08:00] VITALS: BP 111/68; PULSE 94; RESP 16; TEMP 36.1; O2SAT 99
[2021-03-14] MEDS: Senna/Docusate Sodium 1 Tablet PO (08:27)
== END 2021-03-14 09:30 | disposition home or self-care (01) | DRG 540 ==
PROVIDERS: Admitting Provider Obstetrics & Gynecology; PCP Family Medicine; Visit Provider Obstetrics & Gynecology
PROC: 10D00Z1 Extraction of Products of Conception, Low, Open Approach (ICD-10-PCS; CPT 59514; principal; 2021-03-13 07:15)
DX: O34.211 Maternal care for low transverse scar from previous cesarean delivery (principal); O99.02 Anemia complicating childbirth; D64.9 Anemia, unspecified; O99.214 Obesity complicating childbirth; E66.9 Obesity, unspecified; O99.334 Smoking (tobacco) complicating childbirth; F17.210 Nicotine dependence, cigarettes, uncomplicated; Z3A.39 39 weeks gestation of pregnancy; Z37.0 Single live birth; Z87.59 Personal history of other complications of pregnancy, childbirth and the puerperium
CPT/HCPCS: 36415; 85025; 85027; 85461; 86850; 86900; 86901; 87426; 90384; 99218; 99251; J7120; G0378; G0463; J2405; J2790

== ENCOUNTER 2021-06-06 15:05 | Emergency (ER) | payer MEDICAID, SELFPAY ==
[2021-03-13 05:04] VITALS: BMI 42.3
[2021-06-06 15:06] VITALS: BP 132/92; PULSE 87; RESP 16; TEMP 36.4; O2SAT 97; BMI 38.9
--- NOTE | 2021-06-06 15:19 | CT_ITS ---
STUDY: CT ABDOMEN AND PELVIS WITHOUT CONTRAST REASON FOR EXAM: Female, 26 years old. right flank pain RADIATION DOSAGE (If Supplied By Facility): CTDIvol = ( 14.31 ) mGy, DLP = ( 746.96 ) mGycm TECHNIQUE: Transaxial images were obtained from the dome of the diaphragm to the symphysis pubis without oral contrast, and without intravenous contrast. Sagittal and coronal images were reconstructed. Individualized dose optimization techniques were used for this CT. COMPARISON: None. FINDINGS: The visualized lung bases are unremarkable. The visualized portions of the heart are within normal limits. Normal liver. Normal gallbladder and extrahepatic biliary system. Normal spleen. Normal pancreas. Normal bilateral adrenal glands. Bilateral nonobstructing renal stones. No hydronephrosis, ureteral stone, or ureteral dilatation. Normal visualized stomach. Normal small intestine. Normal colon. The appendix is visualized and appears normal. Normal abdominal aorta. Normal inferior vena cava. Normal retroperitoneum. Normal urinary bladder. Normal abdominal wall. Normal osseous structures. CT/Abdomen/Pelvis without Cont IMPRESSION: Bilateral nonobstructing renal stones. Electronically Signed: Rayshawn Arce MD at 16:20 EDT Tel , Service support ,
--- NOTE | 2021-06-06 15:20 | EDS_ITS ---
HPI History of Present Illness Chief Complaint: Back Informant: patient Onset/Context/Timing Onset: Today Context: Gradual Onset Timing: Waxes and wanes Current Severity: Moderate Maximum Severity: Moderate Narrative Narrative: Patient presents secondary to right flank pain. She states she woke this morning with pain starting in her lower back and wrapping around into the groin on the right. She does report some urinary urgency but no dysuria. She is unsure of her last menstrual cycle. She does not have history of ovarian cysts or kidney stones. No known injury. [facility] Medical History Oligohydramnios Home Medications vit no.140-[id number] 1 ea PO DAILY 05/13/19 [History Last Taken 03/12/21 09:30] ferrous sulfate See Rx Instructions .ROUTE .COMPLEX 03/07/21 [History Last Taken 03/12/21 09:30] docusate sodium 100 mg PO BID PRN #60 tab 03/13/21 [Rx Last Taken Unknown] oxycodone 5 mg PO Q6H PRN 7 Days #14 cap 03/13/21 [Rx Last Taken Unknown] sulfamethoxazole-trimethoprim [Bactrim DS] 1 tab PO BID #6 tab 06/06/21 [Rx Last Taken Unknown] Allergy/AdvReac Type Severity Reaction Status Date / Time No Known Allergies Allergy Verified 06/06/21 15:06 Surgical History History of surgery Previous section Social History Smoking Status: Current every day smoker tobacco type: cigarettes ROS ROS ED Constitutional Constitutional ED: Denies chills or fever(s) Eyes Eyes: Denies change in vision ENT ENT ED: Denies sore throat Cardiovascular Cardiovascular: Denies chest pain Respiratory/Chest Respiratory/Chest: Denies cough or dyspnea Gastrointestinal Gastrointestinal: Reports abdominal pain; Denies diarrhea, nausea or vomiting Genitourinary Genitourinary ED: Reports other Details: Urgency ; Denies dysuria Musculoskeletal Musculoskeletal: Reports back pain Integumentary Denies rash Neurologic Neurologic: Denies headache(s) or weakness Psychiatric Psychiatric: Denies anxiety or depression Allergic/Immunologic Allergic/Immunologic ED: Denies urticaria EXAM Physical Exam Const Vital Signs: 06/06/21 15:06 Temperature 97.5 F L Temperature Source Temporal Pulse Rate 87 Respiratory Rate 16 Blood Pressure 132/92 H Blood Pressure Mean 105 Pulse Ox 97 Oxygen Delivery Method Room Air Positive well nourished and well developed General Appearance ED: well developed HEENT Reports normocephalic and head/scalp atraumatic Eyes PERRL and EOMs intact bilaterally Neck supple Chest Wall inspection of chest normal and palpation of chest normal Resp normal respiratory effort and clear to auscultation bilaterally Cardio regular rate and regular rhythm GI Auscultation: hypoactive bowel sounds Palpation: soft and tender RLQ; Negative for guarding or rebound tenderness present Back/Spine Back/Spine Narrative: Tenderness in the right mid to low lumbar paraspinal muscles. No true CVA tenderness. Extremity normal to inspection Neuro oriented x3 and no sensory deficits noted Sensorium / Orientation: alert Motor Exam: strength 5/5 throughout Psych mental status grossly normal Skin no rashes or lesions noted MDM MDM MDM Narrative Medical decision making narrative: Patient was given Toradol for pain. Lab work, CT flank, urinalysis obtained. Lab Data Attestation: I reviewed the patient's lab results. Labs: Laboratory Results - last 24 hr 06/06/21 06/06/21 06/06/21 15:30 15:30 15:30 WBC 9.5 RBC 4.56 Hgb 12.7 Hct 40.1 MCV 87.9 MCH 27.9 MCHC 31.7 L RDW Std Deviation 45.3 H RDW Coeff of Stephan 14.1 Plt Count 314 MPV 9.7 Immature Gran % (Auto) 0.200 Neut % (Auto) 75.3 H Lymph % (Auto) 18.8 L Eddy % (Auto) 4.9 Eos % (Auto) 0.6 Baso % (Auto) 0.2 Absolute Neuts (auto) 7.1 Absolute Lymphs (auto) 1.79 Nucleated RBC % 0 Sodium 140 Potassium 3.7 Chloride 108 H Carbon Dioxide 24.0 Anion Gap 8 BUN 9 Creatinine 0.75 Estim Creat Clear Calc 87.28 Est GFR (MDRD) Af Amer 122 Est GFR (MDRD) Non-Af 100 BUN/Creatinine Ratio 12.0 Glucose 91 Calcium 9.0 Serum , Qual NEGATIVE Urine Color Urine Clarity Urine pH Ur Specific [place] Urine Protein Urine Glucose (UA) Urine Ketones Urine Occult Blood Urine Nitrite Urine Bilirubin Urine Urobilinogen Ur Leukocyte Esterase Urine RBC Urine WBC Ur Squamous Epith Cells Amorphous Sediment Urine Bacteria Urine Mucus 06/06/21 15:45 WBC RBC Hgb Hct MCV MCH MCHC RDW Std Deviation RDW Coeff of Stephan Plt Count MPV Immature Gran % (Auto) Neut % (Auto) Lymph % (Auto) Eddy % (Auto) Eos % (Auto) Baso % (Auto) Absolute Neuts (auto) Absolute Lymphs (auto) Nucleated RBC % Sodium Potassium Chloride Carbon Dioxide Anion Gap BUN Creatinine Estim Creat Clear Calc Est GFR (MDRD) Af Amer Est GFR (MDRD) Non-Af BUN/Creatinine Ratio Glucose Calcium Serum , Qual Urine Color Yellow Urine Clarity Sl. Cloudy Urine pH 7.0 Ur Specific [place] 1.010 Urine Protein 100 H Urine Glucose (UA) Normal Urine Ketones Negative Urine Occult Blood 250 H Urine Nitrite Positive H Urine Bilirubin Negative Urine Urobilinogen Normal Ur Leukocyte Esterase 500 H Urine RBC 50-100 SEEN Urine WBC 50-100 SEEN Ur Squamous Epith Cells 0-5 SEEN Amorphous Sediment 1+ PHOS Urine Bacteria 1+ Urine Mucus 0 SEEN Radiography Diagnostic Testing: Radiology Impression Abdomen/Pelvis CT 06/06/21 15:19 IMPRESSION: Bilateral nonobstructing renal stones. Electronically Signed: Rayshawn Arce MD at 16:20 EDT Tel , Service support , Treatment and Re-Evaluation Comments:: Repeat evaluation patient resting comfortably. Lab work unremarkable. Urinalysis does reveal sign of infection with positive nitrites and 50-100 white cells, 1+ bacteria. Should be treated with a 3-day course of Bactrim, first dose given here. CT flank shows nonobstructing renal stones but no inflammation to indicate pyelonephritis. Discharge Plan Triage Chief Complaint: Back ED Provider: Crys Greene Dx/Rx/DC Orders Clinical Impression: UTI (urinary tract infection) Instructions: ED CYSTITIS Female Adult Prescriptions: New sulfamethoxazole-trimethoprim [Bactrim DS] 800-160 mg tablet 1 tab PO BID Qty: 6 RF: 0 No Action vit no.[id number] 1 EACH tablet 1 ea PO DAILY RF: 0 ferrous sulfate 325 MG tablet See Rx Instructions .ROUTE .COMPLEX RF: 0 oxycodone 5 mg capsule 5 mg PO Q6H PRN (Reason: pain) 7 Days Qty: 14 RF: 0 docusate sodium 100 mg tablet 100 mg PO BID PRN (Reason: constipation) Qty: 60 RF: 1 Primary Care Provider: John Lund Referrals: John Lund MD [Primary Care Provider] - 1 Week if not improving Disposition Disposition: Home, Self Care
[2021-06-06] MEDS: Ketorolac 30 MG/ML Syringe IV (15:33)
[2021-06-06 15:44] LABS: Absolute Lymphocyte Count 1.79 X10^3/uL (0.83-4.51); Absolute Neutrophil Count 7.1 X10^3/uL (2.0-7.7); Basophil# 0.02 X10^3/uL; Basophil% 0.2 % (0-1); Eosinophil# 0.06 X10^3/uL; Eosinophils% 0.6 % (0-5); Hematocrit 40.1 % (37-47); Hemoglobin 12.7 g/dL (12.0-15.0); Lymphocyte # 1.79 X10^3/ul (0.83-4.51); Lymphocyte % 18.8 % (19-41); Mean Corp Hgb Conc 31.7 g/dL (32-36); Mean Corpuscular Hgb 27.9 pg (27.0-32.0); Mean Corpuscular Volume 87.9 fL (81-99); Mean Platelet Vol. 9.7 fl (6.2-12.0); Monocyte# 0.47 X10^3/uL; Monocyte% 4.9 % (0-10); NRBC Flagged by Analyzer 0 % (0-5); Neutrophil # 7.14 X10^3/uL (2.7-7.7); Neutrophil % 75.3 % (47-70); Platelet Count 314 K/mm3 (150-450); RBC Distribution Width CV 14.1 % (11.6-14.6); RBC Distribution Width SD 45.3 fl (35.1-43.9); Red Blood Count 4.56 M/mm3 (4.2-5.4); White Blood Count 9.5 K/mm3 (4.4-11.0)
[2021-06-06 15:46] LABS: Mucous, Urine 0 SEEN /hpf (<or=2+)
[2021-06-06 15:55] LABS: Color, Urine Yellow (Yellow); Glucose, Dipstick Normal (Normal); Ketone-Dipstick Negative (Negative); Leukocyte Esterase-Dipstick 500 /ul (Negative); Nitrite-Dipstick Positive (Negative); Occult Blood-Urine 250 /ul (Negative); Protein-Dipstick 100 mg/dl (Negative); Urine Bilirubin Dipstick Negative (Negative); Urine Clarity Sl. Cloudy (Clear); Urine Urobilinogen Normal (Normal)
[2021-06-06 15:56] LABS: Anion Gap 8 (5-15); BUN 9 mg/dL (7-18); Chloride 108 mmol/L (98-107); Creatinine, Serum 0.75 mg/dL (0.55-1.02); EST Glomerular Filtration Rate 100 mL/min (>60); Est Glom Filt Rate - Afr Amer 122 mL/min (>60); Estimated Creatinine Clearance 87.28 ml/min; Glucose 91 mg/dL (74-106); Potassium 3.7 mmol/L (3.5-5.1); Sodium Level 140 mmol/L (136-145)
[2021-06-06 15:57] LABS: Internal QC Validated? YES +Cl - CLEAR BKGD; Pregnancy, Serum, hCG Quali. NEGATIVE Negative
[2021-06-06 16:05] LABS: Amorphous Sediment 1+ PHOS; Bacteria 1+ /hpf (None Seen); Red Blood Cells-Urine 50-100 SEEN /hpf (0-5); Squamous Epithelial Cells - UA 0-5 SEEN /hpf (5-10); White Blood Cells 50-100 SEEN /hpf (0-5)
[2021-06-06] MEDS: Smz/Tmp Ds Tablet 1 TABLET PO (17:59)
== END 2021-06-06 18:02 | disposition home or self-care (01) ==
PROVIDERS: Emergency Provider Emergency Medicine; PCP Family Medicine
DX: N39.0 Urinary tract infection, site not specified (principal); F17.210 Nicotine dependence, cigarettes, uncomplicated
CPT/HCPCS: 74176; 80048; 81001; 84703; 85025; 96374; 99284; A4216

== ENCOUNTER 2022-01-13 15:36 | Outpatient (CLI) | payer MEDICAID, SELFPAY ==
[2022-01-13 17:55] LABS: Hematocrit 40.8 % (37-47); Hemoglobin 13.6 g/dL (12.0-15.0); Mean Corp Hgb Conc 33.3 g/dL (32-36); Mean Corpuscular Hgb 29.3 pg (27.0-32.0); Mean Corpuscular Volume 87.9 fL (81-99); Mean Platelet Vol. 10.7 fl (6.2-12.0); Platelet Count 332 K/mm3 (150-450); RBC Distribution Width SD 45.5 fl (35.1-43.9); Red Blood Count 4.64 M/mm3 (4.2-5.4); White Blood Count 8.1 K/mm3 (4.4-11.0)
[2022-01-13 18:21] LABS: ALB/GLOB Ratio 1.1 RATIO (0.9-2.4); AST(SGOT) 16 U/L (15-37); Alanine Aminotransfer ALT/SGPT 18 U/L (13-56); Albumin, Serum 3.8 g/dL (3.2-5.0); Alkaline Phosphatase 81 U/L (45-117); Anion Gap 6 (5-15); BUN 10 mg/dL (7-18); Calcium,Total 9.3 mg/dL (8.5-10.1); Chloride 110 mmol/L (98-107); Creatinine, Serum 0.83 mg/dL (0.55-1.02); EST Glomerular Filtration Rate 89 mL/min (>60); Est Glom Filt Rate - Afr Amer 108 mL/min (>60); Globulin 3.6 g/dL (2.2-4.2); Glucose 91 mg/dL (74-106); Potassium 3.8 mmol/L (3.5-5.1); Protein, Total 7.4 g/dL (6.4-8.2); Sodium Level 138 mmol/L (136-145); Thyroid Stim Hormone (TSH) 1.45 uIU/mL (0.358-3.74)
== END 2022-01-13 23:59 | disposition home or self-care (01) ==
LOC: MFPLAB 15:37
PROVIDERS: PCP Family Medicine; Referring Provider Family Medicine; Visit Provider Family Medicine
DX: F32.9 Major depressive disorder, single episode, unspecified (principal)
CPT/HCPCS: 36415; 80053; 84443; 85027

== ENCOUNTER → 2022-04-04 | Outpatient (CLI) | payer MEDICAID, SELFPAY ==
[2022-04-04 12:21] LABS: Absolute Lymphocyte Count 2.11 X10^3/uL (0.83-4.51); Absolute Neutrophil Count 5.9 X10^3/uL (2.0-7.7); Basophil# 0.02 X10^3/uL; Basophil% 0.2 % (0-1); Eosinophil# 0.12 X10^3/uL; Eosinophils% 1.4 % (0-5); Hematocrit 38.3 % (37-47); Hemoglobin 12.9 g/dL (12.0-15.0); Lymphocyte # 2.11 X10^3/ul (0.83-4.51); Lymphocyte % 24.5 % (19-41); Mean Corp Hgb Conc 33.7 g/dL (32-36); Mean Corpuscular Hgb 29.2 pg (27.0-32.0); Mean Corpuscular Volume 86.7 fL (81-99); Mean Platelet Vol. 10.1 fl (6.2-12.0); Monocyte# 0.47 X10^3/uL; Monocyte% 5.5 % (0-10); NRBC Flagged by Analyzer 0 % (0-5); Neutrophil # 5.87 X10^3/uL (2.7-7.7); Neutrophil % 68.1 % (47-70); Platelet Count 299 K/mm3 (150-450); RBC Distribution Width CV 14.2 % (11.6-14.6); RBC Distribution Width SD 45.7 fl (35.1-43.9); Red Blood Count 4.42 M/mm3 (4.2-5.4); White Blood Count 8.6 K/mm3 (4.4-11.0)
[2022-04-04 13:17] LABS: HIV - WCH Non-Reactive (Nonreactive); Hepatitis B Surface Antigen Non-Reactive (Nonreactive); Hepatitis C Antibody Non-Reactive (Nonreactive); Rubella IgG Equiv (Nonreactive); Syphilis Antibodies Non-reactive
[2022-04-08 15:17] LABS: Gonococcus By Nucleic Acid AMP Negative (Negative)
[2022-04-08 15:19] LABS: Chlamydia By Nucleic Acid AMP Positive (Negative)
[2022-04-08 15:51] LABS: HPV Reflexed? NOT INDICATED
== END | disposition home or self-care (01) ==
LOC: WOBLAB 11:39
PROVIDERS: PCP Family Medicine; Visit Provider Obstetrics & Gynecology
DX: Z34.81 Encounter for supervision of other normal pregnancy, first trimester (principal); Z12.4 Encounter for screening for malignant neoplasm of cervix; Z11.3 Encounter for screening for infections with a predominantly sexual mode of transmission
CPT/HCPCS: 36415; 85025; 86703; 86762; 86780; 86803; 87086; 87088; 87340; 87491; 87591; 88175; G0145

== ENCOUNTER → 2023-05-04 | Outpatient (CLI) | payer MEDICAID, SELFPAY ==
[2023-05-04 15:19] LABS: Absolute Lymphocyte Count 2.14 X10^3/uL (0.83-4.51); Absolute Neutrophil Count 6.6 X10^3/uL (2.0-7.7); Basophil# 0.02 X10^3/uL; Basophil% 0.2 % (0-1); Eosinophil# 0.05 X10^3/uL; Eosinophils% 0.5 % (0-5); Hematocrit 35.6 % (37-47); Hemoglobin 11.7 g/dL (12.0-15.0); Lymphocyte # 2.14 X10^3/ul (0.83-4.51); Mean Corp Hgb Conc 32.9 g/dL (32-36); Mean Corpuscular Hgb 28.8 pg (27.0-32.0); Mean Corpuscular Volume 87.7 fL (81-99); Mean Platelet Vol. 10.2 fl (6.2-12.0); Monocyte# 0.41 X10^3/uL; Monocyte% 4.4 % (0-10); NRBC Flagged by Analyzer 0 % (0-5); Neutrophil # 6.64 X10^3/uL (2.7-7.7); Neutrophil % 71.4 % (47-70); Platelet Count 315 K/mm3 (150-450); RBC Distribution Width CV 15.7 % (11.6-14.6); RBC Distribution Width SD 50.4 fl (35.1-43.9); Red Blood Count 4.06 M/mm3 (4.2-5.4); White Blood Count 9.3 K/mm3 (4.4-11.0)
[2023-05-04 16:26] LABS: HIV - WCH Non-Reactive (Nonreactive); Hepatitis B Surface Antigen Non-Reactive (Nonreactive); Hepatitis C Antibody Non-Reactive (Nonreactive); Rubella IgG Reactive (Nonreactive); Syphilis Antibodies Non-reactive
[2023-05-06 08:12] LABS: V-Zoster IgG (Immunity) 176 index (Immune >165)
== END | disposition home or self-care (01) ==
LOC: WOBLAB 14:30
PROVIDERS: PCP Family Medicine; Visit Provider Student in an Organized Health Care Education/Training Program
DX: Z34.81 Encounter for supervision of other normal pregnancy, first trimester (principal)
CPT/HCPCS: 36415; 85025; 86703; 86762; 86780; 86787; 86803; 87086; 87088; 87340

== ENCOUNTER → 2023-06-01 | Outpatient (CLI) | payer MEDICAID, SELFPAY ==
[2023-06-01 11:15] LABS: Absolute Neutrophil Count 8.2 X10^3/uL (2.0-7.7); Basophil# 0.02 X10^3/uL; Basophil% 0.2 % (0-1); Eosinophil# 0.04 X10^3/uL; Eosinophils% 0.4 % (0-5); Hematocrit 35.2 % (37-47); Hemoglobin 12.2 g/dL (12.0-15.0); Lymphocyte % 14.8 % (19-41); Mean Corp Hgb Conc 34.7 g/dL (32-36); Mean Corpuscular Hgb 29.6 pg (27.0-32.0); Mean Corpuscular Volume 85.4 fL (81-99); Mean Platelet Vol. 9.8 fl (6.2-12.0); Monocyte# 0.41 X10^3/uL; NRBC Flagged by Analyzer 0 % (0-5); Neutrophil # 8.15 X10^3/uL (2.7-7.7); Neutrophil % 80.2 % (47-70); Platelet Count 291 K/mm3 (150-450); RBC Distribution Width CV 14.4 % (11.6-14.6); RBC Distribution Width SD 44.9 fl (35.1-43.9); Red Blood Count 4.12 M/mm3 (4.2-5.4); White Blood Count 10.2 K/mm3 (4.4-11.0)
[2023-06-01 11:27] LABS: Protein, Urine (Random) 26.8 mg/dL (<11.9); Protein:Creat Ratio 161 mg/g CRE (0-200)
[2023-06-01 11:28] LABS: ALB/GLOB Ratio 0.8 RATIO (0.9-2.4); AST(SGOT) 13 U/L (15-37); Alanine Aminotransfer ALT/SGPT 15 U/L (13-56); Albumin, Serum 3.2 g/dL (3.2-5.0); Alkaline Phosphatase 82 U/L (45-117); Anion Gap 7 (5-15); BUN 9 mg/dL (7-18); BUN/Creat Ratio 12.6 RATIO (10-20); Calcium,Total 9.2 mg/dL (8.5-10.1); Chloride 110 mmol/L (98-107); Creatinine, Serum 0.72 mg/dL (0.55-1.02); EST Glomerular Filtration Rate 105 mL/min (>60); Est Glom Filt Rate - Afr Amer 127 mL/min (>60); Globulin 4.1 g/dL (2.2-4.2); Glucose 140 mg/dL (74-106); Glucose Challenge Gest 1H 50g 140 mg/dL (70-140); LDH 128 U/L (84-246); Potassium 3.5 mmol/L (3.5-5.1); Protein, Total 7.3 g/dL (6.4-8.2); Sodium Level 137 mmol/L (136-145)
== END | disposition home or self-care (01) ==
LOC: WOBLAB 10:34
PROVIDERS: PCP Family Medicine; Visit Provider Student in an Organized Health Care Education/Training Program
DX: Z34.01 Encounter for supervision of normal first pregnancy, first trimester (principal)
CPT/HCPCS: 36415; 80053; 82570; 82950; 83615; 84156; 85025; 87086; 87088

== ENCOUNTER → 2023-07-08 | Outpatient (CLI) | payer MEDICAID, SELFPAY ==
[2023-07-08 10:36] LABS: Glucose GTT-Gestation. Fasting 89 mg/dL (<105)
[2023-07-08 11:28] LABS: Glucose GTT-Gestational 1 Hr 203 mg/dL (<190)
[2023-07-08 13:00] LABS: Glucose GTT-Gestational 2 Hr 147 mg/dL (<165)
[2023-07-08 13:34] LABS: Glucose GTT-Gestational 3 Hr 78 L (<145)
== END | disposition home or self-care (01) ==
LOC: LAB 09:49
PROVIDERS: PCP Family Medicine; Referring Provider Student in an Organized Health Care Education/Training Program; Visit Provider Student in an Organized Health Care Education/Training Program
DX: O24.912 Unspecified diabetes mellitus in pregnancy, second trimester (principal); Z3A.00 Weeks of gestation of pregnancy not specified
CPT/HCPCS: 36415; 82951; 82952

== ENCOUNTER 2023-10-14 10:47 | Inpatient (IN) | payer MEDICAID, SELFPAY ==
[2023-10-14] VITALS (26 sets, daily range): BP systolic 76–137; BP diastolic 46–71; PULSE 72–105; RESP 13–20; TEMP 36.1–36.8; O2SAT 93–100; BMI 36.2
--- NOTE | 2023-10-14 | PLAC_PTH ---
PATIENT: FRANCIA COTTER LOC: WP U#:[id number] AGE/SX: 28/ ROOM: WP021 RE10/14/[address]: Dr. Jaz Vee, MDDOB: 1995 BED: 1 DIS: 10/15/2023 SPEC #: [id number] RECD: 10/15/23 09:21 STATUS: ROLAND DIVYA #: [id number] ROCIO: 10/14/23 00:[address]: Jaz Vee DEPT: SURGICAL PATHOLOGY RECD BY: Carrie Caputo ENTERED: 10/15/23 09:21 SP TYPE: PLACENTA OTHR DR: Dr. John Lund MD Tissues: Placenta, NOS Procedures: Surgery Specimen Level V HEADER OPERATION: Repeat section PRE-OP DIAGNOSIS: IUFD TISSUE SUBMITTED: Placenta MICROSCOPIC DIAGNOSIS Placenta: Placental disc - third trimester placenta with hypovascular villi and focal hydropic changes (243?gm). Membranes - decidual acute and chronic inflammation. Umbilical cord - three blood vessels. SJ:rg 10/20/2023 COMMENT Case has been reviewed in consultation with Dr. Elliott who concurs with the above diagnosis. IDC:AM MICROSCOPIC DESCRIPTION Slides are reviewed. GROSS DESCRIPTION SPECIMEN: PLACENTA / CLINICAL INFORMATION: A. Weight: Not noted B. Gestational Age: 32 weeks C. Sex: Not noted PLACENTAL WEIGHT (POST FIXATION): 243 gm PLACENTAL DIMENSIONS: 13.0 x 11.0 x 3.0 cm PLACENTAL SHAPE: Usual ovoid, partial disrupted, however, appears to be complete PLACENTAL WEIGHT FOR GESTATIONAL AGE: <10th percentile MEMBRANES - Present. A focal area of placental tissue is also noted attached to the membranes. A. Insertion: Marginal B. Site of rupture from edge: 6.0 cm from edge of placental disc C. Color of membrane: Javed-luke D. Abnormalities: None UMBILICAL CORD - Present and macerated. A. Color: Javed-luke B. Insertion: Marginal C. Length: 43.0 cm D. Diameter: 1.0 cm E. Number of vessels: Three F. Abnormalities: None PLACENTAL DISC - Present A. Color of surface: Javed-luke B. surface abnormalities: None C. Maternal cotyledons: Intact with minimal tears D. Attached retro placental clot: No clot E. Cut surface: Dark red and spongy F. Lesions: None G. Separate clot: Absent SECTIONS SUBMITTED: 1. Membrane roll 2. Cord, maternal end 3. Cord, end 4. Placental disc, and maternal surfaces 5. Placental disc, and maternal surfaces 6. Placental disc, and maternal surfaces SJ:armando 10/16/2023 TC:3 CPT: 96120
[2023-10-14] MEDS: Lactated Ringers 1,000 ML 999 ML IV ×2 (11:20→12:25)
--- NOTE | 2023-10-14 11:24 | HP.PCM.OB_ITS ---
History and Physical Date of Admission: 10/14/23 Expand All Collapse All Pre-Op History and Physical ? HPI: The patient is a 28 year old female presenting for pre-operative visit. She is scheduled for , for demise- never seen at [facility] for care- had missed two previous appts- last appts were at [facility] in June 2023, pt reports no complications with . Pt counseled on IUFD- pt would like to proceed with repeat cs on 10/14/23. Procedure discussed along with risks, benefits and complications. Other alternatives discussed for management. Consent form signed? Yes. ? ? PAST MEDICAL HISTORY History reviewed. No pertinent past medical history. ? ? PAST SURGICAL HISTORY PAST SURGICAL HISTORY Procedure Laterality Date ? DELIVERY ONLY ? ? ? LTCS x2 ? PAST SURGICAL HISTORY OF Bilateral ? ? eye surgery ? TONSILLECTOMY & ADENOIDECTOMY <AGE 14 ? CURRENT MEDICATIONS Current Outpatient Medications Medication Sig Dispense Refill ? PNV no.95/ferrous fum/folic ac ( ORAL) Take by mouth. ? ? ? Current Facility-Administered Medications Medication Dose Route Frequency Provider Last Rate Last Admin ? RhoD immune globulin 300 mcg injection (RHOPHYLAC) 300 mcg INTRAMUSCULAR ONCE (AMB - Up to 30 Days) Shakila Varghese APRN.CNM ? ? ALLERGIES: Patient has no known allergies. ? PERSONAL HISTORY: SOCIAL HISTORY Social History ? Tobacco Use ? Smoking status: Every Day ? ? Types: Cigarettes ? Smokeless tobacco: Never Vaping Use ? Vaping Use: Former Substance Use Topics ? Alcohol use: Not Currently ? Drug use: Never ? FAMILY HISTORY: FAMILY HISTORY FAMILY HISTORY Problem Relation Age of Onset ? Thyroid Cancer Mother ? ? Breast Cancer Mother ? ? No Known Problems Father ? ? No Known Problems Sister ? ? No Known Problems Brother ? ? Breast Cancer Maternal Grandmother ? ? No Known Problems Maternal Grandfather ? ? Diabetes Paternal Grandmother ? ? No Known Problems Paternal Grandfather ? ? ? REVIEW OF SYMPTOMS: negative except as noted above PHYSICAL EXAMINATION: ? VITALS: Blood pressure 110/70, height 5' 1 (1.549 m), weight 190 lb 12.8 oz (86.5 kg), last menstrual period 03/02/2023. ? GENERAL: The patient is well nourished, well hydrated in no acute distress. , The patient is oriented to time, place, and person. NECK: full range of motion Abdomen; gravid- non tender. IUFD confirmed by box lidder Morgan Gonzalez. Mild edema noted. Femur length measure 27 weeks. ? IMPRESSION: @ 32 weeks with IUFD ? PLAN: repeat cs ? Pt has been counseled on risks/benefits and alternatives of surgery including but not limited to anesthesia, bleeding, infection, injury to pelvic structures including bowel, bladder, ureters and vessels. Pt wishes to proceed with surgery at this time. Risk of transfusion reviewed. ? Pt was offered later date of surgery- declines. Pt was offered IOL - declines. Offered Autopsy/ testing- pt accepting. UDS reviewed- pt agreeable. ? ? I have reviewed and updated past medical and surgical history, medications and allergies Jaz Gutierrez MD
[2023-10-14 11:34] LABS: Absolute Lymphocyte Count 1.66 X10^3/uL (0.83-4.51); Absolute Neutrophil Count 10.2 X10^3/uL (2.0-7.7); Basophil# 0.04 X10^3/uL; Basophil% 0.3 % (0-1); Eosinophil# 0.05 X10^3/uL; Eosinophils% 0.4 % (0-5); Hemoglobin 11.8 g/dL (12.0-15.0); Lymphocyte # 1.66 X10^3/ul (0.83-4.51); Lymphocyte % 13.3 % (19-41); Mean Corp Hgb Conc 33.7 g/dL (32-36); Mean Corpuscular Hgb 30.1 pg (27.0-32.0); Mean Corpuscular Volume 89.3 fL (81-99); Mean Platelet Vol. 9.6 fl (6.2-12.0); Monocyte# 0.43 X10^3/uL; Monocyte% 3.5 % (0-10); NRBC Flagged by Analyzer 0 % (0-5); Neutrophil # 10.17 X10^3/uL (2.7-7.7); Neutrophil % 81.7 % (47-70); Platelet Count 271 K/mm3 (150-450); RBC Distribution Width CV 13.2 % (11.6-14.6); RBC Distribution Width SD 42.7 fl (35.1-43.9); Red Blood Count 3.92 M/mm3 (4.2-5.4); White Blood Count 12.5 K/mm3 (4.4-11.0)
[2023-10-14 11:53] LABS: Amphetamine Urine VISTA NEGATIVE (<1000 ng/mL); Barbiturate Urine VISTA NEGATIVE (< 200 ng/mL); Benzodiazepine Urine VISTA NEGATIVE (< 200 ng/mL); Cocaine Urine VISTA NEGATIVE (< 300 ng/mL); Ecstacy Urine VISTA NEGATIVE (< 500 ng/mL); Methadone Urine VISTA NEGATIVE (< 300 ng/mL); PCP Urine VISTA NEGATIVE (< 25 ng/mL); THC Urine VISTA POSITIVE (< 50 ng/mL); Vista UDS pH Range 7
[2023-10-14 11:58] LABS: Prothrombin Time (Protime)PT. 12.8 SECONDS (11.7-14.9)
[2023-10-14 12:00] LABS: Fibrinogen 361 mg/dl (203-444)
[2023-10-14 12:23] LABS: Syphilis Antibodies Non-reactive
[2023-10-14 12:30] LABS: Bedside Glucose 83 mg/dL (74-106)
[2023-10-14] MEDS: Acetaminophen 500 MG Tablet 1000 MG PO ×2 (12:30→18:40)
[2023-10-14] MEDS: Sodium Citrate/Citric Acid 30 ML UDC PO (12:31)
[2023-10-14] MEDS: Cefazolin 2 GM in 0.9% Normal Saline (100mL Bag) 100 ML IV (12:40)
--- NOTE | 2023-10-14 13:36 | OP.PCM_ITS ---
Details Operative Information Date of Procedure: 10/14/23 Pre-Operative Diagnosis: IUFD, Limited care, care elsewhere, 32 weeks gestation, tobacco use in , previous x 2, marijuana use in Post-Operative Diagnosis: same , meconium stained fluid Indications Narrative: Pt presented to office today for transfer of care- last visit in OB office was 06/2023- IUFD diagnosed. hydrops noted and oligohydramnios appreciated , femur length measuring 27 weeks Classification: Scheduled Procedure Type: low transverse liberal arts teacher #1: Rubio Flores Type of Anesthesia: Spinal Special Medications: jamin Antibiotic Given: Ancef 2 grams IV x1 Drain: Arias to straight drain Estimated Blood Loss: 400 Fluids Replaced: 800 Procedure Start Time: 12:59 Procedure Stop Time: 13:44 Time of Delivery: 13:12 Findings Description of Procedure: was given spinal anesthesia. She was then placed in the supine position. She was prepped and draped in the normal sterile fashion. Anesthesia was found to be adequate. At this time a Pfannenstiel skin incision was made with a knife was carried down to the underlying layer of the fascia. The fascial incision was then extended laterally using curved Randhawa scissor. attention was then turned to the superior aspect of the fascial edge was grasped with 2 straight Carlos clamps tented up and the rectus muscle dissected off bluntly. Rectus muscles were then in the midline sharply using scalpel and peritoneum was entered sharply. Gentle opposing traction was placed. At this time the vesicouterine peritoneum was identified. Bladder adhesions high on uterus- taken down using metezbaum scissor. Scalpel was used to make a uterine incision in a low transverse fashion. The uterus was then entered bluntly gentle opposing traction was placed to extend this incision. Membranes were ruptured thick meconium but only small amount of fluid noted. fetus claudia breech- buttocks and legs delivered folled by arms and head. swelling noted in abdomen and skin peeling noted at delivery. Cord was clamped and cut was handed to the waiting nursery team. The Placenta was removed from the uterus. The uterus was then removed from the abdominal cavity. The uterus was cleared of all clots and debris using a lap. At this time the uterine incision was reapproximated using #1 Vicryl in a running locked fashion. Hemostasis was appreciated. Posterior cul-de-sac was then cleared of all clots and debris. Uterus was placed back in the abdominal cavity. Gutters were cleared of all clots and debris. Uterine incision was reevaluated and noted to be of excellent hemostasis. Jamin placed. At this time the peritoneum was grasped with Kellys reapproximated using #2 Vicryl suture in a running fashion. Jamin placed over rectus muscle. Fascia was then reapproximated using #1 Vicryl in a running fashion. Subcu layer was irrigated, jamin placed and it was reapproximated with #2 0 plain gut suture in an interrupted fashion. Subcu layer was closed using 4-0 Monocryl in a subcu fashion. Dry sterile dressing was applied. Instrument lap needle count correct ?2. Presentation: Positive for Vertex Amniotic Membrane Rupture Type: Artificial Amniotic Fluid Description: Thick meconium Placental Delivery Description: Manual Removal Placenta Disposition: Routine to Lab Specimen(s) Sent to Pathology: placenta Cord Vessel Description: 3 Vessels Cord Entanglement: None Infant A Gender: Male (1 minute): 0 (5 minute): 0 Delayed Cord Clamping: No Complications Risks of Surgery Discussed w/Patient: Bleeding, Anesthesia Risks, Infection, Need for Future C-Sections and Injury to surrounding structure(s) including bowel and bladder Complications: IUFD prior to cs
[2023-10-14] MEDS: Oxytocin 15 Units/NS 250ml 15 UNITS/250 ML IV.SOLN 83 UNITS IV (14:00)
[2023-10-14] MEDS: Ketorolac 30 MG/ML Syringe IV ×2 (15:38→21:27)
--- NOTE | 2023-10-14 16:02 | CASEMGMT ---
Labor and Delivery Unit Social Work Sw consult received due to mother of baby (MOB- ) experiencing demise at 32 weeks gestation and has history of substance use. Sw presented to bedside and introduced self to MOB. Sw explained role to MOB and asked if now was an okay time to meet with MOB although visitors were present. MOB stated that it was fine to continue. Sw provided support and empathy. Sw provided MOB with list of mental health resources that she could utilize going forward after loss. Sw discussed feelings of grief and DABDA. Sw provided MOB with list of homes. Sw asked MOB about her care, acknowledging large space of time in between appointments. MOB stated that she had called in to get an appointment scheduled but the earliest she could be seen was today. MOB denies concerns of believing that anything was wrong with baby. Sw acknowledged MOB history of substance use. 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 Sw explained that due to this traumatic loss sw wanted to ensure that MOB is connected to mental health or addiction resources so help prevent relapse. MOB stated that her , DANO is her biggest support person and is able to recognize when she may be struggling and he knows how to comfort and support her. Sw informed and encouraged MOB of benefits of getting connected to mental health supports within the community, and provided MOB with list of counseling agencies that are local to her. Sw encouraged MOB to ask for sw if she had further questions or needed to talk later, MOB expressed understanding. Yanelis Hidalgo, CHANGE MANAGEMENT SPECIALIST, JAPANESE PROFESSOR
--- NOTE | 2023-10-14 16:20 | NURSING ---
Mike from lab ran cord blood and called results due to unable to list baby in [facility]. Baby O+ cord blood work up to be completed on MOM
[2023-10-14 17:08] LABS: Bedside Glucose 107 mg/dL (74-106)
[2023-10-14 17:44] LABS: Pathology Specimen OB SEE PATHOLOGY REPORT
[2023-10-14] MEDS: Lactated Ringers 1,000 ML 100 ML IV (17:52)
--- NOTE | 2023-10-14 21:46 | NURSING ---
Demise Infant's Weight: 3lbs 2oz Infant's Length: 15 inches
[2023-10-15] VITALS (8 sets, daily range): BP systolic 92–99; BP diastolic 51–66; PULSE 67–74; RESP 16–18; TEMP 36.1–36.2; O2SAT 99–100
[2023-10-15] MEDS: Acetaminophen 500 MG Tablet 1000 MG PO ×3 (00:04→11:46)
--- NOTE | 2023-10-15 01:19 | NURSING ---
Cathy Lund from [facility] picked up infant from at 2233 on 10/14/23.
[2023-10-15] MEDS: Enoxaparin 40 MG/0.4 ML Syringe SC (02:03)
[2023-10-15] MEDS: Rho(D) Immune Globulin 300 MCG (1500 Unit) Syringe IV (02:03)
[2023-10-15] MEDS: 0.9% Saline Lock 10 ML Syringe IV ×3 (02:09→09:19)
[2023-10-15] MEDS: Ketorolac 30 MG/ML Syringe IV ×2 (03:24→09:19)
[2023-10-15 06:13] LABS: Hematocrit 28.8 % (37-47); Hemoglobin 9.4 g/dL (12.0-15.0); Mean Corp Hgb Conc 32.6 g/dL (32-36); Mean Corpuscular Hgb 30.2 pg (27.0-32.0); Mean Corpuscular Volume 92.6 fL (81-99); Mean Platelet Vol. 9.5 fl (6.2-12.0); Platelet Count 231 K/mm3 (150-450); RBC Distribution Width CV 13.3 % (11.6-14.6); RBC Distribution Width SD 45.3 fl (35.1-43.9); Red Blood Count 3.11 M/mm3 (4.2-5.4); White Blood Count 13.3 K/mm3 (4.4-11.0)
--- NOTE | 2023-10-15 10:05 | PN_ITS ---
Subjective Subjective patient seen at bedside, doing well. Patient reports good pain control. lochia mild. pt reports voided twice, passing flatus. Pt reports tolerating regular food. ambulating w/o difficulty. pt reports emotionally doing well- she does not feel she needs medication. pt reports has good support system. Objective Data Objective Data Vital Signs: Vital Signs Temp Pulse Resp BP Pulse Ox O2 Del Method 97 F L 74 16 94/56 L 100 Room Air 10/15/23 08:40 10/15/23 08:40 10/15/23 09:27 10/15/23 08:40 10/15/23 09:27 10/15/23 09:27 Oxygen Delivery Method Room Air Weight: 87 kg Body Mass Index (BMI) 36.2 Intake & Output: Intake and Output for Last 24 Hours 10/13/23 10/14/23 10/15/23 23:59 23:59 23:59 Intake Total 2360 / 2360 1000 / 1000 Output Total 900 / 900 650 / 650 Balance 1460 / 1460 350 / 350 Lab / Micro Data 10/15/23 06:05 Labs: Laboratory Results - last 24 hr 10/14/23 11:20: WBC 12.5 H, RBC 3.92 L, Hgb 11.8 L, Hct 35.0 L, MCV 89.3, MCH 30.1, MCHC 33.7, RDW Std Deviation 42.7, RDW Coeff of Stephan 13.2, Plt Count 271, MPV 9.6, Immature Gran % (Auto) 0.800, Neut % (Auto) 81.7 H, Lymph % (Auto) 13.3 L, [place] % (Auto) 3.5, Eos % (Auto) 0.4, Baso % (Auto) 0.3, Absolute Neuts (auto) 10.2 H, Absolute Lymphs (auto) 1.66, Nucleated RBC % 0, PT 12.8, INR 1.0, APTT 27.0, Fibrinogen 361, Urine Opiates Screen NEGATIVE, Urine Methadone Screen NEGATIVE, Ur Barbiturates Screen NEGATIVE, Ur Phencyclidine Scrn NEGATIVE, Ur Amphetamines Screen NEGATIVE, MDMA (Ecstasy) Screen NEGATIVE, U Benzodiazepines Scrn NEGATIVE, Urine Cocaine Screen NEGATIVE, U Cannabinoids Screen POSITIVE H, Ur Drug Screen Comment , Syphilis Total Ab Non-reactive, Blood Type A NEGATIVE, Antibody Screen NEGATIVE 10/14/23 12:11: POC Glucose 83 10/14/23 15:30: Screen NEGATIVE, Baby's Blood Type TNP, Baby's DRU TNP 10/14/23 16:41: POC Glucose 107 H 10/15/23 06:05: WBC 13.3 H, RBC 3.11 L, Hgb 9.4 L, Hct 28.8 L, MCV 92.6, MCH 30.2, MCHC 32.6, RDW Std Deviation 45.3 H, RDW Coeff of Stephan 13.3, Plt Count 231, MPV 9.5 Physical Exam Narrative Abd: fundus firm. Dressing dry and intact. Const alert and oriented x3 General Appearance: cooperative HEENT normocephalic Neck General: normal visual inspection GI soft to palpation and non-distended GI Narrative: Fundus firm Extremity normal to inspection and no calf tenderness Skin no rashes or lesions noted Neuro oriented x3 and CN's II-XII intact bilaterally Psych mental status grossly normal Assessment & Plan Assessment/Plan (1) Delivery by section: (2) IUFD (intrauterine ): PLAN: Plan POD# 1 , Doing well s/p repeat cs for iufd. Routine care pain mgmt monitor VS ambulation dc home
--- NOTE | 2023-10-15 10:07 | DCINST_ITS ---
Discharge Instructions Diet Discharge Diet: No restrictions Activity May resume sexual activity in: 6-8 weeks Lifting Restrictions: 25 Dressing / Incision Call your doctor if your incision/area has: Continuous Slow Oozing, Sudden Increased Bleeding, Increased Pain/ Swelling, Increased Redness, Foul Smelling Discharge and Swelling at the incision site Call your doctor if you observe: Fever of 101 or Higher, Inability to urinate, Using more than 1 pad per hour and Uncontrolled pain Additional Dressing/Incision Instructions:: remove dressing at 7 days post op- if it becomes saturated prior to that time you may remove it. Let soap and water run over incision sites and dab dry. keep incision clean and dry. Follow Up Care Please Follow Up With: Jaz Vee MD When: 1-2 weeks post of incision check and again at 6 weeks post . [phone] Test Results: Test results from this visit will be discussed in further detail at your follow- up appointment, if applicable. Discharge Plan Admission Admit Date/Time: 10/14/23 10:47 Attending Provider: Jaz Vee Primary Care Provider: John Lund Discharge Orders/Prescriptions Prescriptions: New acetaminophen 500 mg Tablet 1,000 mg PO Q6H Qty: 0 0RF ibuprofen 600 mg Tablet 600 mg PO Q6H Qty: 0 0RF Continued vit no.[id number] 1 EACH tablet 1 ea PO DAILY ferrous sulfate 325 MG tablet See Rx Instructions .ROUTE .COMPLEX Rx Instructions: 325 MG po 3 times a week docusate sodium 100 mg tablet 100 mg PO BID PRN (Reason: constipation) Qty: 60 1RF sulfamethoxazole-trimethoprim [Bactrim DS] 800-160 mg tablet 1 tab PO BID Qty: 6 0RF Discontinued oxycodone 5 mg capsule 5 mg PO Q6H PRN (Reason: pain) 7 Days Qty: 14 0RF Referrals / Follow Up: John Lund MD [Primary Care Provider] - Disposition Disposition (needs filled in before D/C Order can be placed): Home, Self Care
--- NOTE | 2023-10-15 10:09 | PCM.DC.BLA ---
Discharge Summary Date of Admission: 10/14/23 Date of Discharge: 10/15/23 Summary: Noted to [facility] on 10/14/2023 with intrauterine demise approximately 32 weeks gestation. She opted for a repeat low-transverse section performed by Dr. Jaz Gutierrez. She had an uncomplicated delivery and uncomplicated postoperative course. She was discharged home on postoperative day 1 in stable condition. Meaningful Use Info Meaningful Use Diagnoses (Choose all that apply): None applicable Discharge Plan Admission Admit Date/Time: 10/14/23 10:47 Attending Provider: Jaz Vee Primary Care Provider: John Lund Discharge Orders/Prescriptions Prescriptions: New acetaminophen 500 mg Tablet 1,000 mg PO Q6H Qty: 0 0RF ibuprofen 600 mg Tablet 600 mg PO Q6H Qty: 0 0RF Continued vit no.[id number] 1 EACH tablet 1 ea PO DAILY ferrous sulfate 325 MG tablet See Rx Instructions .ROUTE .COMPLEX Rx Instructions: 325 MG po 3 times a week docusate sodium 100 mg tablet 100 mg PO BID PRN (Reason: constipation) Qty: 60 1RF sulfamethoxazole-trimethoprim [Bactrim DS] 800-160 mg tablet 1 tab PO BID Qty: 6 0RF Discontinued oxycodone 5 mg capsule 5 mg PO Q6H PRN (Reason: pain) 7 Days Qty: 14 0RF Referrals / Follow Up: John Lund MD [Primary Care Provider] - Disposition Disposition (needs filled in before D/C Order can be placed): Home, Self Care
--- NOTE | 2023-10-15 10:37 | NURSING ---
1030- IBCLC at bedside rounding with pt. Encouragement and support given. IBCLC reviewing that milk can come in, what to expect in breast care over the next few days, and discussing options when it comes to after loss. Handout given with information, as well as a [employer] brochure if that is something pt. is interested in. Pt. appreciative for the information, and states she has been leaking some colostrum but thinks she will just decide to dry her milk up. Pt. encouraged to call line, while inpatient or after discharge, if she ever has questions or concerns or needs additional support.
[2023-10-15] MEDS: Senna/Docusate Sodium 1 Tablet PO (11:45)
[2023-10-28 07:38] LABS: Bedside Glucose 100 mg/dL (74-106)
== END 2023-10-15 12:45 | disposition home or self-care (01) | DRG 540 ==
PROVIDERS: Admitting Provider Obstetrics & Gynecology; PCP Family Medicine; Referring Provider Obstetrics & Gynecology; Visit Provider Obstetrics & Gynecology
DX: O36.4XX0 Maternal care for intrauterine death, not applicable or unspecified (principal); O41.03X0 Oligohydramnios, third trimester, not applicable or unspecified; F17.210 Nicotine dependence, cigarettes, uncomplicated; O34.211 Maternal care for low transverse scar from previous cesarean delivery; O32.1XX0 Maternal care for breech presentation, not applicable or unspecified; O77.0 Labor and delivery complicated by meconium in amniotic fluid; O99.334 Smoking (tobacco) complicating childbirth; O99.892 Other specified diseases and conditions complicating childbirth; N73.6 Female pelvic peritoneal adhesions (postinfective); Z37.1 Single stillbirth; Z3A.32 32 weeks gestation of pregnancy; Z87.59 Personal history of other complications of pregnancy, childbirth and the puerperium
CPT/HCPCS: 80307; 82962; 85025; 85027; 85384; 85461; 85610; 85730; 86780; 86850; 86900; 86901; 88307; 90384; 99221; J7120; A4216; G0378; J2405; J2790; J2791